=== PATIENT | female | born 1965 | race Caucasian/White ===

== ENCOUNTER 2020-05-19 09:35 | Outpatient (REF) | payer BC, SELFPAY ==
[2020-05-19 11:10] LABS: Alanine Aminotransferase 43 U/L (0-31); Albumin Level 4.4 g/dL (3.5-5.0); Alkaline Phosphatase 73 U/L (39-117); Aspartate Amino Transferase 26 U/L (5-31); Bilirubin Direct 0.2 mg/dL (0.0-0.5); Bilirubin Total 0.5 mg/dL (0.0-1.0); Cholesterol 247 mg/dL; HDL Cholesterol 53 mg/dL; LDL Cholesterol Calculated 174 mg/dl; Total Protein 6.9 g/dL (6.5-8.0); Triglycerides 104 mg/dL
== END 2020-05-19 09:36 | disposition home or self-care (01) ==
LOC: HO.LAB 09:35
PROVIDERS: Visit Provider Internal Medicine
DX: E78.00 Pure hypercholesterolemia, unspecified (principal); R74.01 Elevation of levels of liver transaminase levels
CPT/HCPCS: 80061; 80076

== ENCOUNTER 2020-06-04 08:37 | Emergency (ER) | payer BC, SELFPAY ==
[2020-06-04 08:50] VITALS: BP 153/89; PULSE 101; RESP 18; TEMP 37.1; O2SAT 97; BMI 34.6
--- NOTE | 2020-06-04 09:29 | ED.ABDPAIN ---
HPI - Abdominal Pain General Chief Complaint: Abdominal Pain Stated Complaint: vomiting,diarrhea,rectal bleeding Time Seen by Provider: 06/04/20 08:49 Source: patient Mode of arrival: ambulatory Limitations: no limitations History of Present Illness HPI narrative: Patient presents to the ED for lower abdominal pain, diarrhea, and bright red blood in stool. Patient states stool was watery. Patient states history of infection colitis as similar presentation in the past. Patient denies any hematuria, flank pain, fever, chills, nausea, vomiting. Patient denies any vomiting blood. Patient states no family history of colon cancer. Patient states colonoscopy she had last year was normal. Related Data Previous Rx's Medication Instructions Recorded ciprofloxacin HCl 500 mg PO Q12H #14 tab 06/04/20 metronidazole 500 mg PO Q12H #14 tab 06/04/20 oxycodone-acetaminophen [Percocet] 1 tab PO Q8H PRN #12 tab 06/04/20 Allergies Allergy/AdvReac Type Severity Reaction Status Date / Time No Known Allergies Allergy Verified 06/04/20 08:58 Review of Systems Review of Systems Yes all other systems are reviewed and are negative Constitutional: Reports as per HPI and Reports no additional constitutional complaints Eyes: Reports as per HPI and Reports no additional eye complaints Reports system reviewed and no additional complaints, except as documented and Reports as per HPI Cardiovascular: Reports as per HPI and Reports no additional cardiovascular complaints Respiratory: Reports as per HPI and Reports no additional respiratory complaints Gastrointestinal: Reports abdominal pain, Reports diarrhea and Reports loose stools Comments: rectal bleeding Genitourinary: Reports no additional female genitourinary complaints and Reports as per HPI Musculoskeletal: Reports no additional musculoskeletal complaints and Reports as per HPI Reports system reviewed and no additional complaints, except as documented and Reports as per HPI Psychiatric: Reports no additional psychiatric complaints and Reports as per HPI Physical Exam Vital Signs: Vital Signs: Last Vital Signs Temp 98.7 F 06/04/20 10:57 Pulse 78 06/04/20 10:57 Resp 16 06/04/20 10:57 BP 151/88 H 06/04/20 10:57 Pulse Ox 98 06/04/20 10:57 Body Mass Index 34.6 Const: General: cooperative, healthy appearing, comfortable, no acute distress and well developed Orientation/consciousness: patient oriented x3 HENMT: Head: Yes normal to inspection and Yes No palpable skull fracture present Eyes: General: appearance normal, both eyes and all related structures Neck: Neck: Yes normal visual inspection, Yes full ROM, Yes no lymphadenopathy, Yes no meningeal signs and Yes trachea midline Chest: Chest palpation & inspection: normal inspection of the chest, normal palpation of entire chest wall and no localized rib tenderness Resp: Effort & Inspection: normal respiratory effort, able to speak in complete sentences, normal respiratory pattern, no audible wheezes and no cough Auscultation: clear to auscultation bilaterally Cardio: Jugular venous distension: no JVD Heart sounds: S1 normal heart sound present and S2 normal heart sound present GI: Other: Positive for bright red blood on rectal exam. Negative for any hemorrhoids. Stool is brown. Inspection: Yes normal to inspection and No abdominal wall ecchymosis Palpation (GI): Soft to palpation, Tenderness to palpation present (GI) in the LLQ and in the RLQ, no guarding and not rigid : General: No CVA tenderness and Yes no CVA tenderness Back/Spine/Pelvis: Back: no CVA tenderness, No CVA tenderness and No back tenderness Skin: General skin exam: no rashes or lesions noted Neuro: General: patient oriented x3, gait normal, no meningeal signs and CN's II-XI intact bilaterally Cranial nerves: Yes CN's II-XII intact bilaterally Extrem: General: Yes normal to inspection and Yes full ROM Psych: Appearance: grossly normal, well kempt and not disheveled Course Course Course Narrative: History physical exam presents as possible colitis. Patient will have labs drawn, stool guaiac, pain meds, and IV fluids. Most likely patient will be sent for abdominal CT scan. Patient presently has stable vital signs. Reevaluation(s) Reevaluation #1: patient's elevated white blood cell count. Awaiting for abdominal CT scan results. also waiting for urinalysis results Time: 10:59 Reevaluation #2: Patient's CT scan shows colitis without any perforation or abscess. Patient is safe for discharge with oral antibiotics. plan discussed with patient and she is agreeable. Time: 11:55 MDM - Abdominal Pain MDM Narrative Medical decision making narrative: Colitis Lab Data Result diagrams: 06/04/20 09:33 06/04/20 09:33 Labs: Lab Results 06/04/20 06/04/20 06/04/20 Range/Units 09:33 09:33 09:33 WBC 13.1 H (4.8-10.8) X10*3/uL RBC 4.95 (4.20-5.50) X10*6/uL Hgb 14.7 (12.0-16.0) g/dl Hct 44.4 (37-47) % MCV 89.7 (80-98) fL MCH 29.7 (27.0-33.0) pg MCHC 33.1 (31.0-35.0) g/dl RDW 12.6 (11.0-16.0) % Plt Count 229 (160-400) X10*3/uL MPV 12.0 (9.4-12.3) fL Immature Gran % (Auto) 0.3 (0.0-0.4) % Neut % (Auto) 86.4 H (45-73) % Lymph % (Auto) 8.5 L (20-40) % [place] % (Auto) 4.1 (2-11) % Eos % (Auto) 0.5 (0-4) % Baso % (Auto) 0.2 (0-2) % Lymph # (Auto) 1.1 L (1.2-4.9) X10*3/uL [place] # (Auto) 0.5 (0.1-1.2) X10*3/uL Eos # (Auto) 0.1 (0.0-0.4) X10*3/uL Baso # (Auto) 0.0 (0.0-0.2) X10*3/uL Abs Immat Gran (auto) 0.04 H (0.00-0.03) X10*3/uL Absolute Neuts (auto) 11.3 H (2.0-8.3) X10*3/uL Absolute Nucleated RBC 0.000 (0.0-0.012) X10*3/uL Nucleated RBC % (auto) 0.0 (0.0-0.2) /100WBC PT 11.9 (10.8-13.0) SEC INR 1.0 (0.9-1.1) APTT 34.6 (24.1-38.0) SEC Sodium 138 (135-145) mmol/L Potassium 4.3 (3.3-5.1) mmol/l Chloride 101 (96-108) mmol/L Carbon Dioxide 27 (22-29) mmol/L Anion Gap 14 (12-20) BUN 13 (9-16) mg/dL Creatinine 0.84 (0.5-1.4) mg/dL Estim Creat Clear Calc 82.9 Estimated GFR > 60 Random Glucose 112 (60-115) mg/dL Calcium 9.4 (8.4-10.2) mg/dL Total Bilirubin 0.5 (0.0-1.0) mg/dL Direct Bilirubin 0.2 (0.0-0.5) mg/dL AST 28 (5-31) U/L ALT 44 H (0-31) U/L Alkaline Phosphatase 77 (39-117) U/L Total Protein 7.0 (6.5-8.0) g/dL Albumin 4.5 (3.5-5.0) g/dL Lipase 12 (8-78) U/L Urine Color Urine Appearance Urine pH (5.0-8.0) Ur Specific [place] (1.005-1.025) Urine Protein (NEG-TRACE) MG/DL Urine Glucose (UA) (NEG) MG/DL Urine Ketones (NEG) MG/DL Urine Blood (NEG) Urine Nitrite (NEG) Ur Leukocyte Esterase (NEG) Urine RBC (0) /HPF Urine WBC (0-4) /HPF Ur Squamous Epith Cells /LPF Urine Bacteria /LPF Urine Mucus /LPF Stool Occult Blood (NEG) 06/04/20 06/04/20 Range/Units 09:43 11:39 WBC (4.8-10.8) X10*3/uL RBC (4.20-5.50) X10*6/uL Hgb (12.0-16.0) g/dl Hct (37-47) % MCV (80-98) fL MCH (27.0-33.0) pg MCHC (31.0-35.0) g/dl RDW (11.0-16.0) % Plt Count (160-400) X10*3/uL MPV (9.4-12.3) fL Immature Gran % (Auto) (0.0-0.4) % Neut % (Auto) (45-73) % Lymph % (Auto) (20-40) % [place] % (Auto) (2-11) % Eos % (Auto) (0-4) % Baso % (Auto) (0-2) % Lymph # (Auto) (1.2-4.9) X10*3/uL [place] # (Auto) (0.1-1.2) X10*3/uL Eos # (Auto) (0.0-0.4) X10*3/uL Baso # (Auto) (0.0-0.2) X10*3/uL Abs Immat Gran (auto) (0.00-0.03) X10*3/uL Absolute Neuts (auto) (2.0-8.3) X10*3/uL Absolute Nucleated RBC (0.0-0.012) X10*3/uL Nucleated RBC % (auto) (0.0-0.2) /100WBC PT (10.8-13.0) SEC INR (0.9-1.1) APTT (24.1-38.0) SEC Sodium (135-145) mmol/L Potassium (3.3-5.1) mmol/l Chloride (96-108) mmol/L Carbon Dioxide (22-29) mmol/L Anion Gap (12-20) BUN (9-16) mg/dL Creatinine (0.5-1.4) mg/dL Estim Creat Clear Calc Estimated GFR Random Glucose (60-115) mg/dL Calcium (8.4-10.2) mg/dL Total Bilirubin (0.0-1.0) mg/dL Direct Bilirubin (0.0-0.5) mg/dL AST (5-31) U/L ALT (0-31) U/L Alkaline Phosphatase (39-117) U/L Total Protein (6.5-8.0) g/dL Albumin (3.5-5.0) g/dL Lipase (8-78) U/L Urine Color YELLOW Urine Appearance HAZY Urine pH 6.5 (5.0-8.0) Ur Specific [place] 1.010 (1.005-1.025) Urine Protein NEG (NEG-TRACE) MG/DL Urine Glucose (UA) NEG (NEG) MG/DL Urine Ketones NEG (NEG) MG/DL Urine Blood 1+ H (NEG) Urine Nitrite NEG (NEG) Ur Leukocyte Esterase NEG (NEG) Urine RBC 1-4 (0) /HPF Urine WBC 0-2 (0-4) /HPF Ur Squamous Epith Cells 1+ /LPF Urine Bacteria NONE /LPF Urine Mucus 1+ /LPF Stool Occult Blood POS (NEG) Discharge Plan Discharge Clinical Impression: Colitis Patient Disposition: Home, Self-Care Instructions: Colitis (ED) Additional Instructions: return to the ED immediately for worsening abdominal pain, nausea, vomiting, worsening rectal bleeding, fever, chills, or any other concerning symptoms. Prescriptions: New metronidazole 500 mg tablet 500 mg PO Q12H Qty: 14 RF: 0 ciprofloxacin HCl 500 mg tablet 500 mg PO Q12H Qty: 14 RF: 0 oxycodone-acetaminophen [Percocet] 5-325 mg tablet 1 tab PO Q8H PRN (Reason: pain) Qty: 12 RF: 0 Referrals: Rebecca Willis MD [Primary Care Provider] - 2 days ( Colitis) Stand Alone Forms: Work/School Release Interventions: ED Discharge Assessment Last Done: 06/04/20 12:17 Discharge Date/Time: 06/04/20 12:18 Print Language: [place] [facility] Past Medical History Medical History Fatty liver Hypertension Surgical History (Updated 06/04/20 @ 08:53 by Vaughn Ingram) H/O: hysterectomy Social History Social History Alcohol intake: never Smoked in Last 30 Days: No Use of substances other than those prescribed or required for medical reasons: No Advance Directives: No Advance Directives Information Provided: No
[2020-06-04] MEDS: 0.9 % Sodium Chloride 1,000 ML 999 ML IVCONT (09:34)
[2020-06-04 09:46] LABS: MANUAL DIFF FLAG NO
[2020-06-04 09:50] LABS: OBS Int Ctl Valid YES; OBS1 POS (NEG)
[2020-06-04 09:59] LABS: Prothrombin Time 11.9 SEC (10.8-13.0)
[2020-06-04 10:01] LABS: Partial Thromboplastin Time 34.6 SEC (24.1-38.0)
[2020-06-04 10:05] LABS: Basophils Percent Auto 0.2 % (0-2); Eosinophils Absolute Auto 0.1 X10*3/uL (0.0-0.4); Eosinophils Percent Auto 0.5 % (0-4); Hematocrit 44.4 % (37-47); Hemoglobin 14.7 g/dl (12.0-16.0); Imm Gran Abs Auto 0.04 X10*3/uL (0.00-0.03); Imm Gran Pct Auto 0.3 % (0.0-0.4); Lymphocytes Absolute Auto 1.1 X10*3/uL (1.2-4.9); Lymphocytes Percent Auto 8.5 % (20-40); Mean Corpuscular HGB Conc 33.1 g/dl (31.0-35.0); Mean Corpuscular Hemoglobin 29.7 pg (27.0-33.0); Mean Corpuscular Volume 89.7 fL (80-98); Monocytes Absolute Auto 0.5 X10*3/uL (0.1-1.2); Monocytes Percent Auto 4.1 % (2-11); Neutrophils Absolute Auto 11.3 X10*3/uL (2.0-8.3); Neutrophils Percent Auto 86.4 % (45-73); Platelet Count 229 X10*3/uL (160-400); Red Blood Count 4.95 X10*6/uL (4.20-5.50); Red Cell Distribution Width 12.6 % (11.0-16.0); White Blood Count 13.1 X10*3/uL (4.8-10.8)
[2020-06-04 10:15] LABS: Alanine Aminotransferase 44 U/L (0-31); Albumin Level 4.5 g/dL (3.5-5.0); Alkaline Phosphatase 77 U/L (39-117); Aspartate Amino Transferase 28 U/L (5-31); Bilirubin Direct 0.2 mg/dL (0.0-0.5); Bilirubin Total 0.5 mg/dL (0.0-1.0); Lipase 12 U/L (8-78)
[2020-06-04 10:42] LABS: Anion Gap 14 (12-20); Blood Urea Nitrogen 13 mg/dL (9-16); Calcium 9.4 mg/dL (8.4-10.2); Carbon Dioxide 27 mmol/L (22-29); Chloride 101 mmol/L (96-108); Creatinine Clr Calc Pharmacy 82.9; Estimated Glomerular Filt Rate > 60; Glucose Random 112 mg/dL (60-115); Potassium 4.3 mmol/l (3.3-5.1); Sodium 138 mmol/L (135-145)
--- NOTE | 2020-06-04 10:43 | CT_ITS ---
EXAMINATION: CT ABDOMEN AND PELVIS WITH CONTRAST CLINICAL INFORMATION: Abdominal pain. Rectal bleeding. COMPARISON: Abdominal ultrasound 02/13/2020 TECHNIQUE: Multidetector volumetric images were obtained from the superior aspect of the liver through the pubic symphysis following administration 85 mL of Omnipaque 350 intravenous contrast. Sagittal and coronal reformatted images were obtained on the technologist's workstation. Oral contrast: No This CT examination was performed using dose optimization techniques as appropriate, variously including the following: *Automated exposure control *Adjustment of mA and/or kV according to patient size (this includes techniques or standardized protocols for targeted exams where dose is matched to indication/reason for exam; i.e. extremities or head) *Use of iterative reconstruction technique DLP: 783 mGy-cm FINDINGS: LUNG BASES: The visualized lung bases are unremarkable. LIVER, GALLBLADDER, AND BILIARY TREE: The liver is normal in size and shape with relatively low attenuation. No focal hepatic lesion or biliary ductal dilatation is present. The gallbladder is unremarkable with no evidence of radiopaque gallstones, gallbladder wall thickening, or obvious pericholecystic inflammatory changes. PANCREAS: Unremarkable. SPLEEN: Unremarkable. ADRENAL GLANDS: Unremarkable. KIDNEYS AND URETERS: The kidneys are normal in size, shape, and attenuation. No hydronephrosis, hydroureter, or calculi seen. No perinephric stranding. BLADDER: Unremarkable. GASTROINTESTINAL TRACT: The stomach is unremarkable. Normal caliber small bowel. There is no obstruction. Normal appendix. There is wall thickening of the colon extending from the transverse colon through the rectum. Adjacent inflammation of the fat. No free air. No free fluid. Scattered colonic diverticulosis without diverticulitis. ABDOMINAL WALL: No significant hernia is appreciated. LYMPH NODES: Normal. VASCULAR: Normal caliber aorta with minimal atherosclerotic calcifications. PELVIC VISCERA: Uterus is not seen. No adnexal mass. OSSEOUS STRUCTURES: No acute or suspicious osseous abnormality. Degenerative changes of the spine. CT/CT abdomen pelvis w con IMPRESSION: Colitis involving the left hemicolon. This is of uncertain etiology, favoring infectious or inflammatory. Likely hepatic steatosis.
[2020-06-04 10:57] VITALS: BP 151/88; PULSE 78; RESP 16; TEMP 37.1; O2SAT 98
--- NOTE | 2020-06-04 10:59 | PC.NURSE ---
pt declines zofran/morphine at this time. off to ct. aware and agreeable to plan of care.
[2020-06-04] MEDS: iohexoL 350 MG/ML 100 ML INFUS..BTL 85 ML IV (11:21)
[2020-06-04 11:47] LABS: Glucose Urine UA NEG (NEG); Leukocyte Esterase Urine NEG (NEG); Nitrite Urine NEG (NEG); PH 6.5 (5.0-8.0); Urine Blood 1+ (NEG); Urine Ketones NEG (NEG); Urine Protein NEG (NEG-TRACE)
[2020-06-04 11:49] LABS: Appearance Urine HAZY; Color Urine YELLOW
[2020-06-04 11:53] LABS: Mucus Urine 1+ /LPF; Squamous Epithelial Cell Urine 1+ /LPF; WBC Urine 0-2 /HPF (0-4)
== END 2020-06-04 12:18 | disposition home or self-care (01) ==
PROVIDERS: Physician Assistant; Emergency Provider Emergency Medicine; PCP Internal Medicine
DX: K52.89 Other specified noninfective gastroenteritis and colitis (principal); R10.9 Unspecified abdominal pain; Z79.899 Other long term (current) drug therapy
CPT/HCPCS: 36415; 74177; 80053; 80076; 81001; 82248; 82272; 83690; 85025; 85610; 85730; 96361; 96374; 96375; 99284; Q9967

== ENCOUNTER 2021-01-17 08:33 | Outpatient (REF) | payer BC, SELFPAY ==
[2021-01-17 09:53] LABS: Alanine Aminotransferase 31 U/L (0-31); Albumin Level 4.5 g/dL (3.5-5.0); Alkaline Phosphatase 72 U/L (39-117); Anion Gap 10 (12-20); Aspartate Amino Transferase 21 U/L (5-31); Bilirubin Total 0.4 mg/dL (0.0-1.0); Blood Urea Nitrogen 17 mg/dL (9-16); Carbon Dioxide 33 mmol/L (22-29); Chloride 102 mmol/L (96-108); Cholesterol 247 mg/dL; Estimated Glomerular Filt Rate > 60; Glucose Fasting 92 mg/dL (60-99); HDL Cholesterol 52 mg/dL; LDL Cholesterol Calculated 168 mg/dl; Potassium 4.4 mmol/L (3.3-5.1); Sodium 141 mmol/L (135-145); Total Protein 7.2 g/dL (6.5-8.0); Triglycerides 139 mg/dL
== END 2021-01-17 08:34 | disposition home or self-care (01) ==
LOC: HO.LAB 08:33
PROVIDERS: PCP Internal Medicine; Visit Provider Internal Medicine
DX: I10 Essential (primary) hypertension (principal); E78.5 Hyperlipidemia, unspecified
CPT/HCPCS: 36415; 80053; 80061

== ENCOUNTER 2022-02-01 10:17 | Outpatient (REF) | payer OTHER, SELFPAY ==
[2022-02-01 11:19] LABS: Alanine Aminotransferase 13 U/L (0-31); Albumin Level 4.7 g/dL (3.5-5.0); Alkaline Phosphatase 75 U/L (39-117); Aspartate Amino Transferase 16 U/L (5-31); Bilirubin Direct 0.2 mg/dL (0.0-0.5); Bilirubin Total 0.5 mg/dL (0.0-1.0); Total Protein 7.4 g/dL (6.5-8.0)
== END 2022-02-01 10:18 | disposition home or self-care (01) ==
LOC: HO.LAB 10:17
PROVIDERS: PCP Internal Medicine; Visit Provider Internal Medicine
DX: K76.0 Fatty (change of) liver, not elsewhere classified (principal)
CPT/HCPCS: 36415; 80076

== ENCOUNTER 2022-04-19 08:42 | Outpatient (REF) | payer OTHER, SELFPAY ==
[2022-04-19 09:56] LABS: Alanine Aminotransferase 14 U/L (0-31); Albumin Level 4.5 g/dL (3.5-5.0); Alkaline Phosphatase 71 U/L (39-117); Anion Gap 12 (12-20); Aspartate Amino Transferase 17 U/L (5-31); Bilirubin Total 0.4 mg/dL (0.0-1.0); Blood Urea Nitrogen 17 mg/dL (9-16); Calcium 9.9 mg/dL (8.4-10.2); Carbon Dioxide 31 mmol/L (22-29); Chloride 103 mmol/L (96-108); Cholesterol 301 mg/dL; Estimated Glomerular Filt Rate > 60; Glucose Fasting 88 mg/dL (60-99); HDL Cholesterol 58 mg/dL; LDL Cholesterol Calculated 229 mg/dl; Potassium 4.6 mmol/L (3.3-5.1); Sodium 141 mmol/L (135-145); Total Protein 6.9 g/dL (6.5-8.0); Triglycerides 73 mg/dL
== END 2022-04-19 08:43 | disposition home or self-care (01) ==
LOC: HO.LAB 08:42
PROVIDERS: PCP Internal Medicine; Visit Provider Internal Medicine
DX: Z00.00 Encounter for general adult medical examination without abnormal findings (principal); E78.5 Hyperlipidemia, unspecified
CPT/HCPCS: 36415; 80053; 80061

== ENCOUNTER 2022-09-03 13:32 | Outpatient (REF) | payer OTHER, SELFPAY ==
--- NOTE | ~2022-09-03 | XR_ITS ---
EXAMINATION: XR humerus LT, XR shoulder LT min 2V CLINICAL INFORMATION: Reason for Exam M79.602 - Pain in left arm COMPARISON: None TECHNIQUE: Four views of the shoulder. 2 views of the humerus FINDINGS: No acute fracture or dislocation. Mild degenerative changes of the acromioclavicular and glenohumeral joints with degenerative spurring. A 2 cm calcification overlying the glenohumeral joint which may reflect a loose body. Soft tissues are unremarkable. XR/XR shoulder LT min 2V IMPRESSION: * Mild degenerative changes of the shoulder. A 2 cm calcification overlying the glenohumeral joint which may reflect a loose body.
--- NOTE | ~2022-09-03 | XR_ITS ---
EXAMINATION: XR humerus RT, XR shoulder RT min 2V CLINICAL INFORMATION: Reason for Exam M79.601 - Pain in right arm COMPARISON: None TECHNIQUE: Four views of the shoulder. 2 views of the humerus FINDINGS: No acute fracture or dislocation. Moderate degenerative changes of the shoulder with loss of the acromioclavicular joint space. Soft tissues are unremarkable. XR/XR shoulder RT min 2V IMPRESSION: * Moderate degenerative changes of the shoulder.
--- NOTE | ~2022-09-03 | US_ITS ---
EXAMINATION: US VENOUS WITH DOPPLER UPPER EXTREMITY, BILATERAL CLINICAL INFORMATION: Pain COMPARISON: None TECHNIQUE: Ultrasound of the upper extremity is performed using compression sonography and color and pulse Doppler flow with assessment of augmentation of flow. There is also imaging and Doppler assessment of the jugular and subclavian veins. Spectral analysis with color-flow imaging is performed. FINDINGS: The internal jugular, subclavian, axillary, brachial, basilic and cephalic veins are patent bilaterally. Radial and ulnar veins in the forearm are patent bilaterally. US/US venous duplex UE BI IMPRESSION: No DVT demonstrated in the bilateral upper extremity.
--- NOTE | ~2022-09-03 | XR_ITS ---
EXAMINATION: XR humerus RT, XR shoulder RT min 2V CLINICAL INFORMATION: Reason for Exam M79.601 - Pain in right arm COMPARISON: None TECHNIQUE: Four views of the shoulder. 2 views of the humerus FINDINGS: No acute fracture or dislocation. Moderate degenerative changes of the shoulder with loss of the acromioclavicular joint space. Soft tissues are unremarkable. XR/XR humerus RT IMPRESSION: * Moderate degenerative changes of the shoulder.
--- NOTE | ~2022-09-03 | XR_ITS ---
EXAMINATION: XR humerus LT, XR shoulder LT min 2V CLINICAL INFORMATION: Reason for Exam M79.602 - Pain in left arm COMPARISON: None TECHNIQUE: Four views of the shoulder. 2 views of the humerus FINDINGS: No acute fracture or dislocation. Mild degenerative changes of the acromioclavicular and glenohumeral joints with degenerative spurring. A 2 cm calcification overlying the glenohumeral joint which may reflect a loose body. Soft tissues are unremarkable. XR/XR humerus LT IMPRESSION: * Mild degenerative changes of the shoulder. A 2 cm calcification overlying the glenohumeral joint which may reflect a loose body.
== END 2022-09-03 13:33 | disposition home or self-care (01) ==
LOC: HO.XRAY 13:32
PROVIDERS: PCP Internal Medicine; Visit Provider Internal Medicine
DX: M25.511 Pain in right shoulder (principal); M25.512 Pain in left shoulder; M79.601 Pain in right arm; M79.602 Pain in left arm; M79.89 Other specified soft tissue disorders
CPT/HCPCS: 73030; 73060; 93970

== ENCOUNTER 2022-09-06 08:05 | Outpatient (REF) | payer OTHER, SELFPAY ==
[2022-09-06 09:20] LABS: Alanine Aminotransferase 12 U/L (0-31); Albumin Level 4.6 g/dL (3.5-5.0); Alkaline Phosphatase 65 U/L (39-117); Anion Gap 14 (12-20); Aspartate Amino Transferase 16 U/L (5-31); Bilirubin Total 0.6 mg/dL (0.0-1.0); Blood Urea Nitrogen 18 mg/dL (9-16); Carbon Dioxide 30 mmol/L (22-29); Chloride 104 mmol/L (96-108); Cholesterol 281 mg/dL; Estimated Glomerular Filt Rate > 60; Glucose Fasting 85 mg/dL (60-99); HDL Cholesterol 56 mg/dL; LDL Cholesterol Calculated 209 mg/dl; Potassium 4.5 mmol/L (3.3-5.1); Sodium 143 mmol/L (135-145); Total Protein 7.1 g/dL (6.5-8.0); Triglycerides 83 mg/dL
== END 2022-09-06 08:06 | disposition home or self-care (01) ==
LOC: HO.LAB 08:05
PROVIDERS: PCP Internal Medicine; Visit Provider Internal Medicine
DX: E78.5 Hyperlipidemia, unspecified (principal); I10 Essential (primary) hypertension
CPT/HCPCS: 36415; 80053; 80061

== ENCOUNTER 2022-11-24 07:58 | Outpatient (REF) | payer OTHER, SELFPAY ==
--- NOTE | ~2022-11-24 | US_ITS ---
EXAMINATION: US ABDOMEN LIMITED CLINICAL INFORMATION: Ventral hernia without obstruction or gangrene. COMPARISON: CT abdomen and pelvis 06/04/2020. TECHNIQUE: Real-time imaging of the umbilical region in the area of concern with and without Valsalva maneuver. FINDINGS: No periumbilical hernia is appreciated by ultrasound. No soft tissue mass or fluid collection is seen. US/US abdomen limited IMPRESSION: No hernia appreciated by ultrasound
== END 2022-11-24 07:59 | disposition home or self-care (01) ==
LOC: HO.US 07:58
PROVIDERS: PCP Internal Medicine; Visit Provider Internal Medicine
DX: K43.9 Ventral hernia without obstruction or gangrene (principal)
CPT/HCPCS: 76705

== ENCOUNTER 2023-01-17 07:32 | Outpatient (REF) | payer OTHER, SELFPAY | END 2023-01-17 07:33 | disposition home or self-care (01) | LOC: HO.LAB 07:32 | PROVIDERS: PCP Internal Medicine; Visit Provider Internal Medicine | DX: E55.9 Vitamin D deficiency, unspecified (principal); I10 Essential (primary) hypertension; E78.5 Hyperlipidemia, unspecified | CPT/HCPCS: 36415; 80053; 80061; 82306 ==

== ENCOUNTER 2023-02-14 07:32 | Outpatient (REF) | payer OTHER, SELFPAY ==
[2023-02-14 08:30] LABS: Albumin Level 4.3 g/dL (3.5-5.0)
[2023-02-16 13:22] LABS: Calcium (PTHI) 9.9 mg/dL (8.6-10.4); PTHI 27 pg/mL (16-77)
[2023-02-16 18:17] LABS: Calcium, Random Urine 7.1 mg/dL
[2023-02-17 01:33] LABS: Calcium, Ionized 5.2 mg/dL (4.7-5.5)
== END 2023-02-14 07:33 | disposition home or self-care (01) ==
LOC: HO.LAB 07:32
PROVIDERS: PCP Internal Medicine; Visit Provider Internal Medicine
DX: E83.52 Hypercalcemia (principal)
CPT/HCPCS: 36415; 82040; 82310; 82330; 83970

== ENCOUNTER 2023-02-18 15:54 | Outpatient (AMB) | payer OTHER, SELFPAY ==
--- NOTE | 2023-02-18 16:00 | MHC.PC.OV ---
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 Financial Services Required: No Accompanied by: Self / Same As Patient Allergies No Known Allergies Allergy (Verified 02/18/23 16:08) Medication List - Last Reconciled 02/18/23 by Rebecca Koenig MD buspirone 10 mg PO BID 90 days cetirizine (Zyrtec) 10 mg PO DAILY fluticasone propionate 50 mcg/actuation (Flonase Allergy Relief) 1 spray intranasal DAILY 90 days ibuprofen 800 mg PO Q8H PRN 90 days lisinopril-hydrochlorothiazide 10-12.5 mg 1 tab PO DAILY 90 days loratadine (Claritin) 10 mg PO DAILY lorazepam 0.5 mg PO BID PRN 10 days omeprazole 20 mg PO DAILY 90 days Tobacco use date assessed: 02/18/23 Dental Screening Dental Screen Date: 02/18/23 Did you have a dental visit in the last 12 months?: Yes Did you have a dental problem in the last 6 months where you did not have access to dental care?: No Was dental information given to patient?: Patient has dentist HPI HPI Comments History of Present Illness Details This is a 57-year-old female that comes for her physical exam today. She has pure hypercholesterolemia but her [place] risk score is 5.1% risk of having a heart attack or stroke in the next 10 years. Last colonoscopy was 2019. Last mammogram was 2020 and she will call for an appointment. No need for Pap smear due to hysterectomy. She has been losing weight and has inking all candidiasis frequently due to skin flapping in the area. She will eventually benefit from panniculectomy. [facility] Medical History Dyslipidemia Fatty liver GERD (gastroesophageal reflux disease) Hypertension Surgical History (Updated 02/18/23 @ 16:15 by Rebecca Koenig MD) H/O: hysterectomy History of section History of colonoscopy History of laparoscopy Family History Father Esophageal cancer Mother COPD (chronic obstructive pulmonary disease) Paternal Grandfather Diabetes Maternal Grandfather Substance abuse Maternal Grandmother Substance abuse Brother Substance abuse Other Mental problem Social History Housing: House Alcohol intake: never Patient Tobacco Use Status: Former Tobacco user e-Cigarette/Vaping Use: Never Used Second Hand Smoke Exposure: No service: No Current occupational status: employed 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 1. Little interest or pleasure in doing things: not at all 2. Feeling down, depressed, or hopeless: not at all 3. Trouble falling or staying asleep, or sleeping too much: not at all 4. Feeling tired or having little energy: not at all 5. Poor appetite or overeating: not at all 6. Feeling bad about yourself - or that you are a failure or have let yourself or your family down: not at all 7. Trouble concentrating on things, such as reading the newspaper or watching television: not at all 8. Moving or speaking so slowly that other people could have noticed. Or the opposite - being so fidgety or restless that you have been moving around a lot more than usual: not at all 9. Thoughts that you would be better off or of hurting yourself in some way: not at all Total score: 0 Depression Screening Interpretation: Negative 47882 - PHQ-9 Billing: Yes Source: Developed by Drs. Naveen Beasley, Priscila Bagley, Antonio Lind and colleagues, with an educational keegan from [employer]. Thrive Questionnaire Date Thrive assessed: 09/03/22 AUDIT C Alcohol Use Questionnaire (AUDIT-C) 1. How often do you have a drink containing alcohol?: Never Total Score: 0 TORIBIO-7 AMB Questionnaire TORIBIO-7 Date TORIBIO - 7 assessed: 02/18/23 Feeling nervous, anxious, or on edge: 1 = Several days Not being able to stop or control worryin = Not at all Worrying too much about different things: 0 = Not at all Trouble relaxin = Not at all Being so restless that it is hard to sit still: 0 = Not at all Becoming easily annoyed or irritable: 0 = Not at all Feeling afraid as if something awful might happen: 0 = Not at all Total TORIBIO-7 score (0-4 normal; 5-9 mild; 10-14 moderate; 15-21 severe): 1 Source: Developed by Drs. Naveen Beasley, Priscila Bagley, Antonio Lind and colleagues, with an educational keegan from [employer]. TORIBIO-7 Assessment Billing TORIBIO-7 Assessment Tool: TORIBIO-7 Assessment 45389 Review of Systems Const All systems reviewed & are unremarkable except as noted in HPI and below Eyes Reports no additional complaints, Denies change in vision and Denies other visual disturbances Card Denies chest pain at rest, Denies chest pain with activity, Denies edema, Denies irregular heart rhythm, Denies claudication, Denies dyspnea, Denies dyspnea on exertion, Denies orthopnea, Denies paroxysmal nocturnal dyspnea and Denies slow heart rate Resp Denies cough, Denies dyspnea and Denies dyspnea on exertion GI Denies abdominal pain, Denies change in bowel habits, Denies excessive flatus, Denies nausea and Denies vomiting Denies urinary incontinence, Denies urinary hesitancy and Denies urinary urgency Musc Denies abnormal gait, Denies atrophy, Denies deformity and Denies limited range of motion Skin/Breast Denies bleeding lesions, Denies changing lesions and Denies rash Neuro Denies abnormal gait, Denies behavioral changes, Denies confusion and Denies lack of coordination Psych Denies behavioral changes and Denies confusion Physical exam (Primary Care) Vital Signs: Last Vital Signs Pulse 80 02/18/23 16:01 BP 136/90 H 02/18/23 16:01 Pulse Ox 97 02/18/23 16:01 Oxygen Delivery Method Room Air 02/18/23 16:01 BMI result Body Mass Index 30.0 Tobacco/Smoking Status: Tobacco use Status Tobacco use date assessed 02/18/23 02/18/23 16:06 Patient Tobacco Use Status Former Tobacco user 02/18/23 16:00 e-Cigarette/Vaping Use Never Used 02/18/23 16:00 PHQ-9: PHQ-9 Score PHQ-9: Total score 0 02/18/23 16:13 Depression Screening Interpretation: Negative Thrive Assessment: Date of Thrive Assessment Date Thrive assessed 09/03/22 02/18/23 16:00 Const General: No confusion Orientation/consciousness: patient oriented x3 and No confusion HENMT Head: Yes normal to inspection, Yes normocephalic and Yes atraumatic Ears: external ears normal Eyes General: appearance normal, both eyes and all related structures Eyelids: Yes eyelids normal Conjunctivae: conjunctivae normal Neck Neck: Yes normal visual inspection and Yes supple Resp Effort & Inspection: normal respiratory effort Auscultation: clear to auscultation bilaterally Cardio Jugular venous distension: no JVD Rate: regular rate Rhythm: regular rhythm Heart sounds: S1 normal heart sound present and S2 normal heart sound present GI Inspection: Yes normal to inspection Palpation (GI): Soft to palpation and nontender Auscultation: normal bowel sounds Skin General skin exam: no rashes or lesions noted Neuro General: patient oriented x3, no focal motor deficits and No confusion Extrem General: Yes full ROM Psych Appearance: grossly normal Assessment and Plan Assessment & Plan (1) Physical exam: Code(s): Z00.00 - Encounter for general adult medical examination without abnormal findings Plan: Repeat in a year Medications: New alprazolam 0.5 mg PO BID PRN 20 tabs 0RF anxiety 10 days Discontinued lorazepam Take 1 to 2 tabs 30 minutes prior to boarding the plane. Discontinued Reason: Patient Completed Course 0.5 mg PO BID 10 days PRN 20 tabs 0RF anxiety Coding Level of Care Code Est Pt Prev Care 40-64y(44748) Diagnoses Physical exam Z00.00 Additional Codes TORIBIO-7 Assessment Billing - TORIBIO-7 Assessment Tool: TORIBIO-7 Assessment 96829 ([id number]) Time Spent (min) 35
[2023-02-18 16:01] VITALS: BP 136/90; PULSE 80; O2SAT 97
== END 2023-02-18 16:34 | disposition home or self-care (01) ==
PROVIDERS: PCP Internal Medicine; Visit Provider Internal Medicine
DX: Z00.00 Encounter for general adult medical examination without abnormal findings (principal)
CPT/HCPCS: 99396

== ENCOUNTER 2023-06-06 12:03 | Outpatient (AMB) | payer OTHER, SELFPAY ==
--- NOTE | 2023-06-06 13:05 | MHC.OFFWIV ---
Intake Vital Signs 06/06/23 13:15 BP 128/68 Blood Pressure Location Rt brachial Position Sitting Pulse 58 Pulse Source Pulse Oximeter Temp 98.2 F Temp Source Oral Pulse Oximetry (%) 98 Oxygen Delivery Method Room Air Intake Visit Reasons: EST/sinus infection/[phone] Intake Note: Pt c/o of sinus infection x 1 week. Started with scratchy throat and yellow/green sludge down throat. Patient Tobacco Use Status: Former Tobacco user Allergies No Known Allergies Allergy (Verified 06/06/23 13:15) HPI EST/sinus infection/[phone] HPI Details Patient is a 57-year-old female who comes to the walk-in clinic complaining of headache, nasal congestion, and cough for about a week. Home COVID test was negative. She denies fever chills, nausea vomiting or diarrhea, malaise or myalgias, headache or dizziness, weakness, chest pain or shortness of breath, chest congestion or other significant associated symptoms. [facility] Medical History GERD (gastroesophageal reflux disease) Dyslipidemia Fatty liver Hypertension Surgical History History of colonoscopy History of laparoscopy History of section H/O: hysterectomy Family History Father Esophageal cancer Mother COPD (chronic obstructive pulmonary disease) Paternal Grandfather Diabetes Maternal Grandfather Substance abuse Maternal Grandmother Substance abuse Brother Substance abuse Other Mental problem Social History Housing: House Alcohol intake: never Patient Tobacco Use Status: Former Tobacco user e-Cigarette/Vaping Use: Never Used Second Hand Smoke Exposure: No service: No Current occupational status: employed 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 Current occupational exposures/hazards: No Cognitive needs: No Hearing needs: No Vision needs: Yes (Glasses) Review of Systems Const All systems reviewed & are unremarkable except as noted in HPI and below Physical Exam Vital Signs: Last Vital Signs Temp 98.2 F 06/06/23 13:15 Pulse 58 06/06/23 13:15 BP 128/68 06/06/23 13:15 Pulse Ox 98 06/06/23 13:15 Oxygen Delivery Method Room Air 11/18/23 13:15 Const General: cooperative, healthy appearing, comfortable, no acute distress, alert, awake, Physically active and well groomed; No anxious, diaphoretic, intoxicated appearing, poor hygiene or tired appearing Nutritional Appearance: average body habitus Limitations: no limitations HEENT Head: Yes normal to inspection, Yes normocephalic and Yes atraumatic Ears: hearing grossly normal bilaterally, external ears normal, TM's normal bilaterally and EAC's normal General nose exam: Normal external nose present, Normal nares present, No nasal polyps present, Abnormal mucous membranes and turbinates present and Nasal discharge present Face and sinus: Yes normal facial exam, Yes face symmetric and Yes sinus tenderness Mouth: Normal oral and palatal mucosa present, lip normal and tongue normal Throat: Yes posterior oropharynx normal, Yes abnormal tonsil (mildly erythematous bilaterally), No peritonsillar mass, No postnasal drainage, No uvular edema and No cobblestoning Eyes General: appearance normal, both eyes and all related structures Resp Effort & Inspection: normal respiratory effort, able to speak in complete sentences, no audible wheezes, no cough, no grunting, not labored, no nasal flaring, no retractions and symmetric chest movement Auscultation: clear to auscultation bilaterally, no crackles, no rales, no rhonchi, no wheezes, lung sounds not diminished and No rub present Cardio Rate: regular rate Skin Other: Good color, warm and dry Psych Appearance: grossly normal Mental Status: mental status grossly normal Speech and movement: Normal speech and movement present Affect: normal affect Attitude: cooperative Thought process: Normal thought process present Insight: Good insight present (Psych) Judgement: Good judgement present (Psych) Assessment & Plan Assessment & Plan (1) Sinusitis: Code(s): J32.9 - Chronic sinusitis, unspecified Qualifiers: Sinusitis location: frontal Chronicity: acute Recurrence: non-recurrent Qualified Code(s): J01.10 - Acute frontal sinusitis, unspecified Plan Patient is a 57-year-old female comes to the walk-in clinic complaining of sinus pressure along with nasal congestion and productive cough for about a week. I think she has viral upper respiratory infection, possible early sinusitis. Declines viral panel testing for flu, COVID and RSV today. She was negative for COVID when checked at home. Will write her for azithromycin, and she can take benzonatate for the cough as well as Mucinex with adequate water intake. Other supportive care discussed. She knows to follow up if symptoms persist or worsen. Medications: New azithromycin take 500 mg today (day 1), then 250 mg for 4 days (days 2-5) PO 6 tabs 0RF benzonatate 100 mg PO BID-TID PRN 30 caps 0RF cough Coding Level of Care Code Est Pt Level 4 (93170) Diagnoses Acute non-recurrent frontal sinusitis J01.10 Sinusitis location: frontal Chronicity: acute Recurrence: non-recurrent
[2023-06-06 13:15] VITALS: BP 128/68; PULSE 58; TEMP 36.8; O2SAT 98
== END 2023-06-06 14:24 | disposition home or self-care (01) ==
PROVIDERS: PCP Internal Medicine; Visit Provider Physician Assistant Medical
DX: J01.10 Acute frontal sinusitis, unspecified (principal)
CPT/HCPCS: 99214

== ENCOUNTER 2023-10-31 09:16 | Outpatient (AMB) | payer OTHER, SELFPAY ==
[2023-10-31 09:22] VITALS: BP 104/70; PULSE 83; TEMP 37; O2SAT 97; BMI 30.2
--- NOTE | 2023-10-31 09:22 | MHC.OFFWIV ---
Intake Vital Signs 10/31/23 09:22 Height 5 ft 4 in Weight 176 lb BMI 30.2 BP 104/70 Blood Pressure Location Lt brachial Position Sitting Pulse 83 Pulse Source Pulse Oximeter Temp 98.6 F Temp Source Oral Pulse Oximetry (%) 97 Oxygen Delivery Method Room Air Intake Visit Reasons: EP sinus infection (lobby) Intake Note: Pt is here today c/o coughing up yellowish phelgm x3wks Patient Tobacco Use Status: Former Tobacco user Allergies No Known Allergies Allergy (Verified 10/31/23 09:25) PFSH Medical History GERD (gastroesophageal reflux disease) Dyslipidemia Fatty liver Hypertension Surgical History History of colonoscopy History of laparoscopy History of section H/O: hysterectomy Family History Father Esophageal cancer Mother COPD (chronic obstructive pulmonary disease) Paternal Grandfather Diabetes Maternal Grandfather Substance abuse Maternal Grandmother Substance abuse Brother Substance abuse Other Mental problem Social History Housing: House Alcohol intake: never Patient Tobacco Use Status: Former Tobacco user e-Cigarette/Vaping Use: Never Used Second Hand Smoke Exposure: No service: No Current occupational status: employed 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
--- NOTE | 2023-10-31 09:40 | AM.OFFWIN_ITS ---
Intake Vital Signs 10/31/23 09:22 Height 5 ft 4 in Weight 176 lb BMI 30.2 BP 104/70 Blood Pressure Location Lt brachial Position Sitting Pulse 83 Pulse Source Pulse Oximeter Temp 98.6 F Temp Source Oral Pulse Oximetry (%) 97 Oxygen Delivery Method Room Air Intake Visit Reasons: EP sinus infection (lobby) Patient Tobacco Use Status: Former Tobacco user Allergies No Known Allergies Allergy (Verified 10/31/23 09:25) HPI EP sinus infection (lobby) HPI Details Patient is a 58-year-old female comes to the walk-in clinic complaining of 3 months of nasal congestion, chest congestion, associated with productive phlegm which is reportedly green and sometimes bloody. She reports an insidious onset of symptoms, with no clear day of having the symptoms start, and no fever or chills, nausea vomiting malaise or myalgias, weakness or dizziness, shortness of breath or chest pain, or other significant associated symptoms. She does history of allergies, and takes Flonase and Zyrtec for this already regularly. [facility] Medical History GERD (gastroesophageal reflux disease) Dyslipidemia Fatty liver Hypertension Surgical History History of colonoscopy History of laparoscopy History of section H/O: hysterectomy Family History Father Esophageal cancer Mother COPD (chronic obstructive pulmonary disease) Paternal Grandfather Diabetes Maternal Grandfather Substance abuse Maternal Grandmother Substance abuse Brother Substance abuse Other Mental problem Social History Housing: House Alcohol intake: never Patient Tobacco Use Status: Former Tobacco user e-Cigarette/Vaping Use: Never Used Second Hand Smoke Exposure: No service: No Current occupational status: employed 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 Current occupational exposures/hazards: No Cognitive needs: No Hearing needs: No Vision needs: Yes (Glasses) Review of Systems Const All systems reviewed & are unremarkable except as noted in HPI and below Physical Exam Vital Signs: Last Vital Signs Temp 98.6 F 10/31/23 09:22 Pulse 83 10/31/23 09:22 BP 104/70 10/31/23 09:22 Pulse Ox 97 10/31/23 09:22 Oxygen Delivery Method Room Air 10/31/23 09:22 BMI result Body Mass Index 30.2 Const General: cooperative, healthy appearing, comfortable, no acute distress, alert, awake, Physically active and well groomed; No anxious, diaphoretic, ill appearing, intoxicated appearing, poor hygiene or tired appearing Nutritional Appearance: average body habitus Orientation/consciousness: oriented to person Limitations: no limitations HEENT Head: Yes normal to inspection, Yes normocephalic and Yes atraumatic Ears: hearing grossly normal bilaterally, external ears normal, EAC's normal and TM abnormal (Left side) dull and with fluid behind the TM General nose exam: Normal external nose present and Abnormal mucous membranes and turbinates present Face and sinus: Yes face symmetric and Yes sinus tenderness Mouth: Normal oral and palatal mucosa present, lip normal and tongue normal Throat: No peritonsillar mass, No postnasal drainage, No uvular edema, No cobblestoning and Yes other (Status post tarsal procedure, asymmetry of the posterior OP, but it rises ) Eyes General: appearance normal, both eyes and all related structures Neck Neck: Yes normal visual inspection, Yes full ROM, Yes no lymphadenopathy, Yes trachea midline, Yes supple and No anterior neck swelling Chest Chest palpation & inspection: normal palpation of entire chest wall Resp Effort & Inspection: normal respiratory effort, able to speak in complete sentences, no audible wheezes, no grunting, not labored, no nasal flaring, no retractions and symmetric chest movement Auscultation: clear to auscultation bilaterally, no crackles, no rales, no rhonchi, no wheezes, lung sounds not diminished and No rub present Cardio Palpation: normal PMI Rate: regular rate Rhythm: regular rhythm Heart sounds: S1 normal heart sound present and S2 normal heart sound present Skin Other: Good color, warm and dry Neuro General: oriented to person Psych Appearance: grossly normal Mental Status: mental status grossly normal Speech and movement: Normal speech and movement present Affect: normal affect Attitude: cooperative Thought process: Normal thought process present Insight: Good insight present (Psych) Judgement: Good judgement present (Psych) Assessment & Plan Assessment & Plan (1) Sinusitis: Code(s): J32.9 - Chronic sinusitis, unspecified Qualifiers: Sinusitis location: ethmoidal Chronicity: acute Recurrence: non- recurrent Qualified Code(s): J01.20 - Acute ethmoidal sinusitis, unspecified Plan Patient is a 57-year-old female comes to the walk-in clinic complaining of sinus pressure along with nasal congestion and productive cough with chest congestion for about 3 weeks. Apparently had an insidious onset, so possibly this was underlying allergy induced, as she does have a history, however she has been taking Zyrtec and using Flonase for some time. She does not remember an acute onset, however even if it was viral she is now 3 weeks out and so viral testing was considered but patient declines. At this point due to her complaint of purulent phlegm in addition to sinus pressure radiating to the left jaw, we will treat her with a course of azithromycin, which did clear similar symptoms for her in the past (more than half a year ago). She also can take benzonatate for the cough, and she will continue with Mucinex and adequate water intake, as well as continuing Tylenol and ibuprofen alternatively for the sinus pressure and jaw pain. Probiotic use was advised to decrease GI issues from the antibiotic, he ecially as she has a history of colitis. She knows to monitor symptoms and to follow up if they persist or worsen, or to go to emergency department with worrisome symptoms. She can take benzonatate for the cough as well as Mucinex with adequate water intake. Other supportive care discussed. She knows to follow up if symptoms persist or worsen. Medications: New azithromycin take 500 mg today (day 1), then 250 mg for 4 days (days 2-5) PO 6 tabs 0RF benzonatate 100 mg PO BID-TID PRN 30 caps 0RF cough Coding Level of Care Code Est Pt Level 4 (04833) Diagnoses Acute non-recurrent ethmoidal sinusitis J01.20 Sinusitis location: ethmoidal Chronicity: acute Recurrence: non-recurrent
== END 2023-10-31 09:48 | disposition home or self-care (01) ==
PROVIDERS: PCP Internal Medicine; Visit Provider Physician Assistant Medical
DX: J01.20 Acute ethmoidal sinusitis, unspecified (principal)
CPT/HCPCS: 99214

== ENCOUNTER 2024-02-13 09:20 | Outpatient (REF) | payer OTHER, SELFPAY ==
[2024-02-13 12:03] LABS: Alanine Aminotransferase 14 U/L (0-31); Albumin Level 4.8 g/dL (3.5-5.0); Alkaline Phosphatase 74 U/L (39-117); Anion Gap 14 (12-20); Aspartate Amino Transferase 18 U/L (5-31); Bilirubin Total 0.4 mg/dL (0.0-1.0); Blood Urea Nitrogen 15 mg/dL (9-16); Calcium 10.6 mg/dL (8.4-10.2); Carbon Dioxide 29 mmol/L (22-29); Chloride 103 mmol/L (96-108); Cholesterol 276 mg/dL (<200); Estimated Glomerular Filt Rate > 60; Glucose Fasting 91 mg/dL (60-99); HDL Cholesterol 63 mg/dL (>40); LDL Cholesterol Calculated 194 mg/dL (<100); Potassium 4.8 mmol/L (3.3-5.1); Sodium 141 mmol/L (135-145); Triglycerides 99 mg/dL (<150)
== END 2024-02-13 09:21 | disposition home or self-care (01) ==
LOC: HO.LAB 09:20
PROVIDERS: PCP Internal Medicine; Visit Provider Internal Medicine
DX: I10 Essential (primary) hypertension (principal); E78.5 Hyperlipidemia, unspecified
CPT/HCPCS: 36415; 80053; 80061

== ENCOUNTER 2024-02-24 16:02 | Outpatient (AMB) | payer OTHER, SELFPAY ==
[2024-02-24 16:12] VITALS: BP 120/80; BMI 31.8
--- NOTE | 2024-02-24 16:12 | MHC.PC.OV ---
Vital Signs 02/24/24 16:12 Height 5 ft 4 in Weight 185 lb BMI 31.8 BP 120/80 Blood Pressure Location Lt brachial Position Sitting Intake Visit Reasons: pe Intake Note: Patient here for a physical exam [employer] Professor Required: No Accompanied by: Self / Same As Patient Allergies No Known Allergies Allergy (Verified 02/24/24 16:23) Medication List - Last Reconciled 02/24/24 by Rebecca Koenig MD alprazolam 0.5 mg PO BID PRN 10 days buspirone 10 mg PO BID 90 days cetirizine (Zyrtec) 10 mg PO DAILY fluticasone propionate 50 mcg/actuation (Flonase Allergy Relief) 1 spray intranasal DAILY 90 days ibuprofen 800 mg PO Q8H PRN 90 days lisinopril-hydrochlorothiazide 10-12.5 mg 1 tab PO DAILY 90 days omeprazole 20 mg PO DAILY 90 days Tobacco use date assessed: 02/24/24 Dental Screening Dental Screen Date: 02/24/24 Did you have a dental visit in the last 12 months?: Yes Did you have a dental problem in the last 6 months where you did not have access to dental care?: No Was dental information given to patient?: Patient has dentist HPI HPI Comments History of Present Illness Details This is a 58-year-old female that comes for her physical exam. No need for Pap smear due to hysterectomy. Had colonoscopy 2019 and next colonoscopy should be 2024. Last mammogram was 2022 less than a year ago at [facility] and was normal as per patient. [facility] Medical History GERD (gastroesophageal reflux disease) Dyslipidemia Fatty liver Hypertension Surgical History (Updated 02/24/24 @ 16:41 by Rebecca Koenig MD) History of colonoscopy History of laparoscopy History of section H/O: hysterectomy Family History Father Esophageal cancer Mother COPD (chronic obstructive pulmonary disease) Paternal Grandfather Diabetes Maternal Grandfather Substance abuse Maternal Grandmother Substance abuse Brother Substance abuse Other Mental problem Social History Housing: House Alcohol intake: never Patient Tobacco Use Status: Former Tobacco user e-Cigarette/Vaping Use: Never Used Second Hand Smoke Exposure: No service: No Current occupational status: employed 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 1. Little interest or pleasure in doing things: not at all 2. Feeling down, depressed, or hopeless: not at all 3. Trouble falling or staying asleep, or sleeping too much: not at all 4. Feeling tired or having little energy: not at all 5. Poor appetite or overeating: not at all 6. Feeling bad about yourself - or that you are a failure or have let yourself or your family down: not at all 7. Trouble concentrating on things, such as reading the newspaper or watching television: not at all 8. Moving or speaking so slowly that other people could have noticed. Or the opposite - being so fidgety or restless that you have been moving around a lot more than usual: not at all 9. Thoughts that you would be better off or of hurting yourself in some way: not at all Total score: 0 Depression Screening Interpretation: Negative Depression Screening Done: Yes 38582 - PHQ-9 Billing: Yes Source: Developed by Drs. Naveen Beasley, Priscila Bagley, Antonio Lind and colleagues, with an educational keegan from [employer]. Thrive Questionnaire Date Thrive assessed: 02/24/24 I am a: Patient What is your living situation today?: I have a steady place to live Within the past 12 months, did the food you bought not last and you didn't have the money to get more?: Never true Within the past 12 months, did you worry whether your food would run out before you got money to buy more?: Never true Do you have trouble paying for medicines?: No Do you have trouble getting transportation to medical appointments?: No Do you have trouble paying your heating and electricity bill?: No Do you have trouble taking care of your child, family member or friend?: No Do you have trouble with day-to-day activities such as bathing, preparing meals, shopping, managing finances, etc.?: No Are you currently unemployed and looking for a job?: No Are you interested in more education?: No Please select the resources that you would like help with: None Currently or been in a relationship where the following occur: No concerns reported THRIVE Score: 0 TORIBIO-7 AMB Questionnaire TORIBIO-7 Date TORIBIO - 7 assessed: 02/24/24 Feeling nervous, anxious, or on edge: 2 = More than half the days Not being able to stop or control worryin = More than half the days Worrying too much about different things: 2 = More than half the days Trouble relaxin = Not at all Being so restless that it is hard to sit still: 0 = Not at all Becoming easily annoyed or irritable: 0 = Not at all Feeling afraid as if something awful might happen: 1 = Several days Total TORIBIO-7 score (0-4 normal; 5-9 mild; 10-14 moderate; 15-21 severe): 7 Source: Developed by Drs. Naveen Beasley, Priscila Bagley, Antonio Lind and colleagues, with an educational keegan from [employer]. TORIBIO-7 Assessment Billing TORIBIO-7 Assessment Tool: TORIBIO-7 Assessment 26217 Review of Systems Const All systems reviewed & are unremarkable except as noted in HPI and below Card Denies chest pain at rest, Denies chest pain with activity, Denies edema, Denies irregular heart rhythm, Denies claudication, Denies dyspnea, Denies dyspnea on exertion, Denies orthopnea, Denies paroxysmal nocturnal dyspnea and Denies slow heart rate Resp Denies cough, Denies dyspnea and Denies dyspnea on exertion Physical exam (Primary Care) Vital Signs: Last Vital Signs BP 120/80 02/24/24 16:12 BMI result Body Mass Index 31.8 BMI Assessment/Plan discussion: High BMI High, discussed plan: lifestyle, weight reduction, dietary and physical activity Tobacco/Smoking Status: Tobacco use Status Tobacco use date assessed 02/24/24 02/24/24 16:17 Patient Tobacco Use Status Former Tobacco user 02/24/24 16:17 e-Cigarette/Vaping Use Never Used 02/24/24 16:17 PHQ-9: PHQ-9 Score PHQ-9: Total score 0 02/24/24 16:41 Depression Screening Interpretation: Negative Thrive Assessment: Date of Thrive Assessment Date Thrive assessed 02/24/24 02/24/24 16:19 Currently or been in a relationship where the following occur: No concerns reported [facility] Head: Yes normal to inspection, Yes normocephalic and Yes atraumatic Ears: external ears normal Eyes General: appearance normal, both eyes and all related structures Eyelids: Yes eyelids normal Conjunctivae: conjunctivae normal Neck Neck: Yes normal visual inspection and Yes supple Resp Effort & Inspection: normal respiratory effort Auscultation: clear to auscultation bilaterally Cardio Jugular venous distension: no JVD Rate: regular rate Rhythm: regular rhythm Heart sounds: S1 normal heart sound present and S2 normal heart sound present GI Inspection: Yes normal to inspection Palpation (GI): Soft to palpation and nontender Auscultation: normal bowel sounds Skin General skin exam: no rashes or lesions noted Neuro General: no focal motor deficits Extrem General: Yes full ROM Psych Appearance: grossly normal Assessment and Plan Assessment & Plan (1) Physical exam: Code(s): Z00.00 - Encounter for general adult medical examination without abnormal findings Plan: Repeat in a year. Coding Level of Care Code Est Pt Prev Care 40-64y(35922) Diagnoses Physical exam Z00.00 Additional Codes TORIBIO-7 Assessment Billing - TORIBIO-7 Assessment Tool: TORIBIO-7 Assessment 65559 ([id number]) Time Spent (min) 31
== END 2024-02-24 16:37 | disposition home or self-care (01) ==
PROVIDERS: PCP Internal Medicine; Visit Provider Internal Medicine
DX: Z00.00 Encounter for general adult medical examination without abnormal findings (principal)
CPT/HCPCS: 99396

== ENCOUNTER → 2024-08-24 15:50 | Outpatient (BNVA) | payer OTHER, SELFPAY | PROVIDERS: PCP Internal Medicine; Visit Provider Internal Medicine | DX: I10 Essential (primary) hypertension (principal); K21.9 Gastro-esophageal reflux disease without esophagitis; F41.1 Generalized anxiety disorder; J30.9 Allergic rhinitis, unspecified; Z79.899 Other long term (current) drug therapy | CPT/HCPCS: 96127 ==

== ENCOUNTER 2025-02-25 08:06 | Outpatient (REF) | payer BC, SELFPAY ==
[2025-02-25 09:21] LABS: Alanine Aminotransferase 28 U/L (0-31); Albumin Level 4.7 g/dL (3.5-5.0); Alkaline Phosphatase 76 U/L (39-117); Anion Gap 12 (12-20); Aspartate Amino Transferase 26 U/L (5-31); Blood Urea Nitrogen 17 mg/dL (9-16); Calcium 9.3 mg/dL (8.4-10.2); Carbon Dioxide 30 mmol/L (22-29); Chloride 104 mmol/L (96-108); Cholesterol 282 mg/dL (<200); Estimated Glomerular Filt Rate > 60; HDL Cholesterol 56 mg/dL (>40); Potassium 4.9 mmol/L (3.3-5.1); Sodium 141 mmol/L (135-145); Total Protein 7.5 g/dL (6.5-8.0); Triglycerides 132 mg/dL (<150)
== END 2025-02-25 08:07 | disposition home or self-care (01) ==
LOC: HO.LAB 08:06
PROVIDERS: PCP Internal Medicine; Visit Provider Internal Medicine
DX: I10 Essential (primary) hypertension (principal); E78.5 Hyperlipidemia, unspecified
CPT/HCPCS: 36415; 80053; 80061

== ENCOUNTER 2025-02-28 14:56 | Outpatient (AMB) | payer BC, SELFPAY ==
--- NOTE | 2025-02-28 14:59 | MHC.PC.OV ---
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 Accompanied by: Self / Same As Patient Allergies No Known Allergies Allergy (Verified 02/28/25 15:17) Medication List - Last Reconciled 02/28/25 by Rebecca Koenig MD alprazolam 0.5 mg PO BID PRN 10 days buspirone 10 mg PO BID 90 days cetirizine (Zyrtec) 10 mg PO DAILY fluticasone propionate 50 mcg/actuation (Flonase Allergy Relief) 1 spray intranasal DAILY 90 days ibuprofen 800 mg PO Q8H PRN 90 days lisinopril-hydrochlorothiazide 10-12.5 mg 1 tab PO DAILY 90 days omeprazole 20 mg PO DAILY 90 days Tobacco use date assessed: 02/28/25 Dental Screening Dental Screen Date: 02/28/25 Did you have a dental visit in the last 12 months?: Yes Did you have a dental problem in the last 6 months where you did not have access to dental care?: No Was dental information given to patient?: Patient has dentist HPI HPI Comments History of Present Illness Details The patient is a 59-year-old female presenting for a physical exam and review of blood work results. The patient has a history of essential hypertension, currently managed with lisinopril and hydrochlorothiazide, which she took today. Her blood pressure was measured at 146 mmHg systolic during the visit, indicating a slight elevation. She also has a history of hyperlipidemia, with current total cholesterol at 282 mg/dL, slightly elevated from 276 mg/dL previously. The patient previously discontinued statin therapy due to elevated liver enzymes, which normalized after cessation. The patient reports minimal depression, with a PHQ-9 score indicating very low severity. She has a history of gastroesophageal reflux disease, managed with daily omeprazole, despite guidelines suggesting tapering. Preventative care measures include being up to date with mammogram and colonoscopy screenings. Family history includes esophageal cancer in her father and chronic obstructive pulmonary disease in her mother. The patient quit smoking nearly 37 years ago and does not consume alcohol. [facility] Medical History GERD (gastroesophageal reflux disease) Dyslipidemia Fatty liver Hypertension Surgical History History of colonoscopy History of laparoscopy History of section H/O: hysterectomy Family History Father Esophageal cancer Mother COPD (chronic obstructive pulmonary disease) Paternal Grandfather Diabetes Maternal Grandfather Substance abuse Maternal Grandmother Substance abuse Brother Substance abuse Other Mental problem Social History Housing: House Alcohol intake: never Patient Tobacco Use Status: Former Tobacco user e-Cigarette/Vaping Use: Never Used Second Hand Smoke Exposure: No service: No Current occupational status: employed 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 1. Little interest or pleasure in doing things: not at all 2. Feeling down, depressed, or hopeless: several days 3. Trouble falling or staying asleep, or sleeping too much: not at all 4. Feeling tired or having little energy: not at all 5. Poor appetite or overeating: more than half the days 6. Feeling bad about yourself - or that you are a failure or have let yourself or your family down: more than half the days 7. Trouble concentrating on things, such as reading the newspaper or watching television: not at all 8. Moving or speaking so slowly that other people could have noticed. Or the opposite - being so fidgety or restless that you have been moving around a lot more than usual: not at all 9. Thoughts that you would be better off or of hurting yourself in some way: not at all Total score: 5 Depression Screening Interpretation: Positive Depression Screening Follow-up: Existing condition and Follow-up Visit Requested Depression Screening Done: Yes 47933 - PHQ-9 Billing: Yes Source: Developed by Drs. Naveen Beasley, Priscila Bagley, Antonio Lind and colleagues, with an educational keegan from [employer]. Thrive Questionnaire Date Thrive assessed: 02/28/25 I am a: Patient What is your living situation today?: I have a steady place to live Within the past 12 months, did the food you bought not last and you didn't have the money to get more?: Never true Within the past 12 months, did you worry whether your food would run out before you got money to buy more?: Never true Do you have trouble paying for medicines?: No Do you have trouble getting transportation to medical appointments?: No Do you have trouble paying your heating and electricity bill?: No Do you have trouble taking care of your child, family member or friend?: No Do you have trouble with day-to-day activities such as bathing, preparing meals, shopping, managing finances, etc.?: No Are you currently unemployed and looking for a job?: No Are you interested in more education?: No Please select the resources that you would like help with: None Currently or been in a relationship where the following occur: No concerns reported THRIVE Score: 0 AUDIT C Alcohol Use Questionnaire (AUDIT-C) 1. How often do you have a drink containing alcohol?: Monthly or less 2. How many drinks containing alcohol do you have on a typical day when you are drinking?: 1 or 2 3. How often do you have six or more drinks on one occasion?: Never Total Score: 1 TORIBIO-7 AMB Questionnaire TORIBIO-7 Date TORIBIO - 7 assessed: 02/28/25 Feeling nervous, anxious, or on edge: 1 = Several days Not being able to stop or control worryin = Several days Worrying too much about different things: 1 = Several days Trouble relaxin = Several days Being so restless that it is hard to sit still: 0 = Not at all Becoming easily annoyed or irritable: 0 = Not at all Feeling afraid as if something awful might happen: 1 = Several days Total TORIBIO-7 score (0-4 normal; 5-9 mild; 10-14 moderate; 15-21 severe): 5 Source: Developed by Drs. Naveen Beasley, Priscila Bagley, Antonio Lnid and colleagues, with an educational keegan from [employer]. TORIBIO-7 Assessment Billing TORIBIO-7 Assessment Tool: TORIBIO-7 Assessment 48269 Review of Systems Const All systems reviewed & are unremarkable except as noted in HPI and below Card Denies chest pain at rest, Denies chest pain with activity, Denies edema, Denies irregular heart rhythm, Denies claudication, Denies dyspnea, Denies dyspnea on exertion, Denies orthopnea, Denies paroxysmal nocturnal dyspnea and Denies slow heart rate Resp Denies cough, Denies dyspnea and Denies dyspnea on exertion GI Denies abdominal pain, Denies change in bowel habits, Denies excessive flatus, Denies nausea and Denies vomiting Denies urinary incontinence, Denies urinary hesitancy and Denies urinary urgency Musc Denies atrophy, Denies deformity and Denies limited range of motion Physical exam (Primary Care) Vital Signs: Last Vital Signs Pulse 88 02/28/25 15:01 BP 146/96 H 02/28/25 15:01 Pulse Ox 96 02/28/25 15:01 Oxygen Delivery Method Room Air 02/28/25 15:01 BMI result Body Mass Index 35.0 Tobacco/Smoking Status: Tobacco use Status Tobacco use date assessed 02/28/25 02/28/25 15:06 Patient Tobacco Use Status Former Tobacco user 02/28/25 15:06 e-Cigarette/Vaping Use Never Used 02/28/25 15:06 PHQ-9: PHQ-9 Score PHQ-9: Total score 5 02/28/25 15:06 Depression Screening Interpretation: Positive Depression Screening Follow-up: Existing condition and Follow-up Visit Requested Thrive Assessment: Date of Thrive Assessment Date Thrive assessed 02/28/25 02/28/25 15:06 Currently or been in a relationship where the following occur: No concerns reported [facility] Head: Yes normal to inspection, Yes normocephalic and Yes atraumatic Ears: external ears normal Eyes General: appearance normal, both eyes and all related structures Eyelids: Yes eyelids normal Conjunctivae: conjunctivae normal Neck Neck: Yes normal visual inspection and Yes supple Resp Effort & Inspection: normal respiratory effort Auscultation: clear to auscultation bilaterally Cardio Jugular venous distension: no JVD Rate: regular rate Rhythm: regular rhythm Heart sounds: S1 normal heart sound present and S2 normal heart sound present GI Inspection: Yes normal to inspection Palpation (GI): Soft to palpation and nontender Auscultation: normal bowel sounds Skin General skin exam: no rashes or lesions noted Neuro General: no focal motor deficits Extrem General: Yes full ROM Psych Appearance: grossly normal Coding Level of Care Code Est Pt Prev Care 40-64y(85339) Diagnoses Physical exam Z00.00 Additional Codes TORIBIO-7 Assessment Billing - TORIBIO-7 Assessment Tool: TORIBIO-7 Assessment 61601 ([id number]) PHQ-9 - 90796 - PHQ-9 Billing: Yes ([id number]) Time Spent (min) 35 Assessment & Plan Assessment & Plan (1) Physical exam: Code(s): Z00.00 - Encounter for general adult medical examination without abnormal findings Category: Medical Plan The plan includes addressing the patient's elevated cholesterol levels by initiating a low-dose statin therapy, specifically rosuvastatin 5 mg, to be sent to [facility] for a 90-day supply with one refill. Blood work will be repeated in six months to monitor liver enzyme levels and cholesterol response to the statin therapy. The patient's blood pressure will be re-evaluated in three weeks, and if still elevated, adjustments to the current antihypertensive regimen may be considered, potentially increasing lisinopril or hydrochlorothiazide dosage. Lifestyle modifications, including dietary changes and weight management, were discussed to aid in controlling cholesterol and blood pressure. Patient was informed and verbally consented to the use of an ambient scribe for clinic note documentation during this visit. Orders: Orders Comprehensive [place]. Panel Fast 6 Months I10 - Essential (primary) hypertension Lipid Panel 6 Months E78.5 - Hyperlipidemia, unspecified Medications: New rosuvastatin 5 mg PO DAILY 90 tabs 1RF 90 days
[2025-02-28 15:01] VITALS: BP 146/96; PULSE 88; O2SAT 96; BMI 35.0
== END 2025-02-28 15:46 | disposition home or self-care (01) ==
LOC: HO.HMCH 14:57
PROVIDERS: PCP Internal Medicine; Visit Provider Internal Medicine
DX: Z00.00 Encounter for general adult medical examination without abnormal findings (principal)

== ENCOUNTER → 2025-02-28 14:56 | Outpatient (BNVA) | payer BC, SELFPAY | PROVIDERS: PCP Internal Medicine; Visit Provider Internal Medicine | DX: Z00.00 Encounter for general adult medical examination without abnormal findings (principal); I10 Essential (primary) hypertension; E78.5 Hyperlipidemia, unspecified; K21.9 Gastro-esophageal reflux disease without esophagitis; Z87.891 Personal history of nicotine dependence; Z79.899 Other long term (current) drug therapy | CPT/HCPCS: 96127 ==

== ENCOUNTER 2025-04-01 09:16 | Outpatient (AMB) | payer BC, SELFPAY ==
--- NOTE | 2025-04-01 09:19 | MHC.OFFWIV ---
Intake Vital Signs 04/01/25 09:20 Height 5 ft 4 in Weight 209 lb BMI 35.9 BP 102/70 Blood Pressure Location Lt brachial Position Sitting Respiration 16 Pulse 79 Pulse Source Pulse Oximeter Temp 98.8 F Temp Source Oral Pulse Oximetry (%) 98 Oxygen Delivery Method Room Air Intake Visit Reasons: EP-Congestion, Cough Intake Note: Pt is here today c/o chest congestion and a cough 2.5weeks Patient Tobacco Use Status: Former Tobacco user Allergies No Known Allergies Allergy (Verified 04/01/25 09:23) HPI HPI Comments History of Present Illness Details This is a 59-year-old female with a past medical history of seasonal allergies managed with Zyrtec and Flonase daily presenting for evaluation of cough and wheezing that she has had for the past 2-1/2 weeks coupled with postnasal drip. Patient states that she will cough only when lying in bed and does not report any overt shortness for breath. She denies having any fevers, chills, otalgia, pharyngitis or chest pain. Additionally, patient denies having any sick contacts. [facility] Medical History GERD (gastroesophageal reflux disease) Dyslipidemia Fatty liver Hypertension Surgical History History of colonoscopy History of laparoscopy History of section H/O: hysterectomy Family History Father Esophageal cancer Mother COPD (chronic obstructive pulmonary disease) Paternal Grandfather Diabetes Maternal Grandfather Substance abuse Maternal Grandmother Substance abuse Brother Substance abuse Other Mental problem Social History Housing: House Alcohol intake: never Patient Tobacco Use Status: Former Tobacco user e-Cigarette/Vaping Use: Never Used Second Hand Smoke Exposure: No service: No Current occupational status: employed 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 Current occupational exposures/hazards: No Cognitive needs: No Hearing needs: No Vision needs: Yes (Glasses) Review of Systems Const All systems reviewed & are unremarkable except as noted in HPI and below Denies body aches, Denies chills, Denies fatigue, Denies fever(s) and Denies headache(s) Eyes Reports no additional complaints and Denies itchy eyes ENT Denies otalgia, Denies headache(s), Denies odynophagia, Denies sinus pain, Reports sinus pressure, Denies sore throat, Denies throat swelling and Denies tongue swelling Card Denies chest pain, Denies dyspnea and Denies dyspnea on exertion Resp Reports cough (when supine), Denies dyspnea, Denies dyspnea on exertion and Reports wheezing GI Denies odynophagia Neuro Denies headache(s) Psych Reports no additional complaints Endo Denies fatigue Aller/Immun Denies itchy eyes, Reports seasonal rhinorrhea, Denies throat swelling, Denies tongue swelling and Reports wheezing Physical Exam Vital Signs: Last Vital Signs Temp 209 F H 04/01/25 09:20 Pulse 79 04/01/25 09:20 Resp 16 04/01/25 09:20 BP 102/70 04/01/25 09:20 Pulse Ox 98 04/01/25 09:20 Oxygen Delivery Method Room Air 04/01/25 09:20 BMI result Body Mass Index 35.9 Patient is afebrile Const General: cooperative, healthy appearing, comfortable, no acute distress, well developed, alert, awake and Physically active; No acute distress, in distress, ill appearing or tired appearing Nutritional Appearance: well nourished Orientation/consciousness: patient oriented x3 Limitations: no limitations HEENT Head: Yes normal to inspection and Yes normocephalic Ears: hearing grossly normal bilaterally, TM normal on the right, left TM abnormal (TM bulging without erythema or fluid level) and EAC's normal General nose exam: Normal external nose present Face and sinus: Yes normal facial exam and Yes sinuses nontender Mouth: Normal oral and palatal mucosa present and moist mucous membranes Throat: Yes posterior oropharynx normal (There is no edema, erythema or exudates of the posterior oropharynx) and Yes postnasal drainage Eyes General: appearance normal, both eyes and all related structures Neck Lymphatic: no lymphadenopathy noted Resp Effort & Inspection: normal respiratory effort, able to speak in complete sentences, no audible wheezes, no cough, not labored, no nasal flaring, no respiratory distress and not tachypneic Auscultation: wheezes expiratory wheezes, inspiratory wheezes, upper bilaterally and throughout Cardio Rate: regular rate Rhythm: regular rhythm Skin General skin exam: no rashes or lesions noted Neuro General: patient oriented x3 Psych Appearance: grossly normal Mental Status: mental status grossly normal Insight: Good insight present (Psych) Judgement: Good judgement present (Psych) Assessment & Plan Assessment & Plan (1) Wheezing due to allergy: Comment: Patient is well-appearing and in no acute distress. Patient will continue Flonase and Zyrtec daily and will be prescribed an albuterol inhaler to use every 6 hours only as needed. Code(s): T78.40XA - Allergy, unspecified, initial encounter; R06.2 - Wheezing Plan: Albuterol 1 puff every 6 hours p.r.n. wheezing, follow up with PCP for any worsening symptoms. Medications: New albuterol sulfate 90 mcg/actuation (Ventolin HFA) 1 puff inhalation Q6H PRN 8.5 grams 1RF shortness of breath or wheezing Coding Level of Care Code Est Pt Level 3 (45185) Diagnoses Wheezing due to allergy T78.40XA; R06.2 Time Spent (min) 20
[2025-04-01 09:20] VITALS: BP 102/70; PULSE 79; RESP 16; TEMP 37.1; O2SAT 98; BMI 35.9
== END 2025-04-01 09:58 | disposition home or self-care (01) ==
LOC: HO.HMCWIC 09:16
PROVIDERS: PCP Internal Medicine; Visit Provider Physician Assistant
DX: T78.40XA Allergy, unspecified, initial encounter (principal); R06.2 Wheezing

== ENCOUNTER 2025-04-08 09:05 | Outpatient (AMB) | payer BC, SELFPAY ==
[2025-04-08 09:06] VITALS: BP 124/80; PULSE 82; RESP 17; TEMP 37.3; O2SAT 96; BMI 35.9
--- NOTE | 2025-04-08 09:06 | MHC.OFFWIV ---
Intake Vital Signs 04/08/25 09:06 Height 5 ft 4 in Weight 209 lb BMI 35.9 BP 124/80 Blood Pressure Location Lt brachial Position Sitting Respiration 17 Pulse 82 Pulse Source Pulse Oximeter Temp 99.1 F Temp Source Oral Pulse Oximetry (%) 96 Oxygen Delivery Method Room Air Intake Visit Reasons: EP-wheezing, cough, chest congestion Intake Note: Pt is here today c/o wheezing,cough and chest congestion x3wks Patient Tobacco Use Status: Former Tobacco user Allergies No Known Allergies Allergy (Verified 04/08/25 09:07) HPI EP-wheezing, cough, chest congestion HPI Details Patient is a 59-year-old female with history of asthma versus COPD, as well as dyslipidemia hypertension and GERD, but no underlying asthma, COPD, who comes to the walk-in clinic complaining of 3 weeks of cough, wheezing and postnasal drip. She reports that she has year-round allergies, for which she only takes jukd-fke-[id number] medication. She has never trialed allergy injections for prophylactic treatment, as she reports that she does not have the time to take out of work for that. She came to the walk-in a week ago, and was given inhaler due to the wheezing in her chest, which she reports does help for a short while, however she does continue to cough. Symptoms are worse when she is lying supine, but do persist while upright. Her sputum is clear, and not purulent. She never had fever or chills, nausea vomiting or diarrhea, malaise or myalgias, weakness, dizziness or headache, or other significant associated symptoms. She did not have known sick contacts and she was not tested for viral illnesses as of yet. [facility] Medical History GERD (gastroesophageal reflux disease) Dyslipidemia Fatty liver Hypertension Surgical History History of colonoscopy History of laparoscopy History of section H/O: hysterectomy Family History Father Esophageal cancer Mother COPD (chronic obstructive pulmonary disease) Paternal Grandfather Diabetes Maternal Grandfather Substance abuse Maternal Grandmother Substance abuse Brother Substance abuse Other Mental problem Social History (Reviewed 04/08/25 @ 09:15 by NEISHA Patterson Housing: House Alcohol intake: never Patient Tobacco Use Status: Former Tobacco user e-Cigarette/Vaping Use: Never Used Second Hand Smoke Exposure: No service: No Current occupational status: employed 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 Current occupational exposures/hazards: No Cognitive needs: No Hearing needs: No Vision needs: Yes (Glasses) Review of Systems Const All systems reviewed & are unremarkable except as noted in HPI and below Physical Exam Vital Signs: Last Vital Signs Temp 99.1 F 04/08/25 09:06 Pulse 82 04/08/25 09:06 Resp 17 04/08/25 09:06 BP 124/80 04/08/25 09:06 Pulse Ox 96 04/08/25 09:06 Oxygen Delivery Method Room Air 04/08/25 09:06 BMI result Body Mass Index 35.9 Const General: cooperative, comfortable, no acute distress, alert, awake, Physically active and well groomed; No anxious, diaphoretic, ill appearing, intoxicated appearing, poor hygiene or tired appearing Orientation/consciousness: oriented to person Limitations: no limitations HEENT Head: Yes normal to inspection, Yes normocephalic and Yes atraumatic Ears: hearing grossly normal bilaterally, external ears normal, EAC's normal and TM abnormal (Bilateral, slightly retracted on the left with fluid bubbles) with fluid behind the TM, with loss of landmarks and retracted; not bulging, not obstructed by cerumen and not perforated General nose exam: Normal external nose present, Normal nares present, No nasal polyps present, Normal nasal mucous membranes and turbinates present, Normal septum present and No nasal discharge present Face and sinus: Yes normal facial exam, Yes sinuses nontender and Yes face symmetric Mouth: Normal oral and palatal mucosa present, lip normal and tongue normal Throat: Yes posterior oropharynx normal, No peritonsillar mass, No uvular edema and No cobblestoning Eyes General: appearance normal, both eyes and all related structures Neck Neck: Yes normal visual inspection, Yes no lymphadenopathy, Yes trachea midline, Yes supple and No anterior neck swelling Chest Chest palpation & inspection: normal palpation of entire chest wall Resp Effort & Inspection: normal respiratory effort, able to speak in complete sentences, normal respiratory pattern, no audible wheezes, Actively coughing (Dry frequent), no grunting, not labored, no nasal flaring, no pursed lip breathing, no respiratory distress, no retractions, no segmental paradox chest wall movement, no stridor, not tachypneic, no tripod positioning, no use of accessory muscles, No prolonged expiratory phase and symmetric chest movement Auscultation: clear to auscultation bilaterally, no crackles, no rales, no rhonchi, wheezes (Inspiratory as well as expiratory) throughout, lung sounds not diminished and No rub present Percussion: percussion normal Cardio Rate: regular rate Rhythm: regular rhythm Skin Other: Good color, warm and dry Neuro General: oriented to person Psych Appearance: grossly normal Mental Status: mental status grossly normal Speech and movement: Normal speech and movement present Affect: normal affect Attitude: cooperative Thought process: Normal thought process present Insight: Good insight present (Psych) Judgement: Good judgement present (Psych) Results Reviewed Results Reviewed: Plain chest x-ray shows no acute cardiopulmonary issues on my wet read Assessment & Plan Assessment & Plan (1) RAD (reactive airway disease) with wheezing: Code(s): J45.909 - Unspecified asthma, uncomplicated Qualifiers: Asthma complication type: uncomplicated Asthma persistence: intermittent Asthma severity: mild Qualified Code(s): J45.20 - Mild intermittent asthma, uncomplicated Plan Patient is a 59-year-old female with no underlying chronic respiratory issues, who comes to the walk-in clinic with chronic cough for 3 weeks. She declines flu COVID and RSV viral testing. She does have longstanding allergy issues, for which she takes ueat-pdr-svlblxi medication only. She has persistent serous fluid bilateral membranes, and I think this is the cause of her persistent postnasal drip and cough. However at this point, she now has a reactive airway, and would benefit from a course of prednisone taper. 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 Especially as she is aware that she has poor Eustachian tube drainage on the left side, and this could lead to otitis media as this could lead to otitis media. She can continue the Flonase and the wkvl-whn-reneaga medication, however she should try changing to a new allergy medication. She could also trial montelukast, and we did discuss that her symptoms might not reoccur to this degree if she trialed allergy injections. If symptoms persist, she might be a good candidate for seeing ENT. I advised that she talk with her primary care to discuss follow up as needed Orders: Orders XR chest 2V Today R05.9 - Cough, unspecified Medications: New amoxicillin-pot clavulanate 875-125 mg 1 tab PO BID 14 tabs 0RF prednisone then take 3 tabs for 3 days, then 2 tabs for 3 days, then 1 tab for 3 days. 40 mg (4 x 10 mg) PO DAILY 30 tabs 0RF 3 days benzonatate 200 mg PO BID-TID PRN 30 caps 0RF cough Coding Level of Care Code Est Pt Level 4 (27312) Diagnoses Mild intermittent reactive airway disease with wheezing without complication J45.20 Asthma complication type: uncomplicated Asthma persistence: intermittent Asthma severity: mild
== END 2025-04-08 10:02 | disposition home or self-care (01) ==
PROVIDERS: PCP Internal Medicine; Visit Provider Physician Assistant Medical
DX: J45.20 Mild intermittent asthma, uncomplicated (principal)

== ENCOUNTER 2025-04-08 09:05 | Outpatient (REF) | payer BC, SELFPAY ==
--- NOTE | ~2025-04-08 | XR_ITS ---
CLINICAL HISTORY: R05.9 - Cough, unspecified --- Additional Notes or Special Instructions: 3 weeks cough, wheezing all hinojosa, no fever 2 view chest x-ray Comparison: None provided Findings: No consolidation or effusion. Normal size heart. No acute fracture. IMPRESSION: 1. No acute findings. This document has been electronically signed by: Ligia Caceres MD on 04/08/2025 13:28:25
== END 2025-04-08 09:06 | disposition home or self-care (01) ==
LOC: HO.HMGCX 09:05
PROVIDERS: PCP Internal Medicine; Visit Provider Physician Assistant Medical
DX: J45.20 Mild intermittent asthma, uncomplicated (principal); Z87.891 Personal history of nicotine dependence
CPT/HCPCS: 71046

== ENCOUNTER → 2025-04-08 09:35 | Outpatient (BNV) | payer BC, SELFPAY | PROVIDERS: PCP Internal Medicine; Visit Provider Radiology Diagnostic Radiology | DX: R05.9 Cough, unspecified (principal) | CPT/HCPCS: 71046 ==

== ENCOUNTER 2025-05-24 16:13 | Outpatient (AMB) | payer BC, SELFPAY ==
[2025-05-24 16:29] VITALS: BP 122/80; PULSE 94; O2SAT 94; BMI 36.1
--- NOTE | 2025-05-24 16:29 | MHC.PC.OV ---
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 Accompanied by: Self / Same As Patient Allergies No Known Allergies Allergy (Verified 05/24/25 17:01) Medication List - Last Reconciled 05/24/25 by Rebecca Koenig MD albuterol sulfate 90 mcg/actuation (Ventolin HFA) 1 puff inhalation Q6H PRN alprazolam 0.5 mg PO BID PRN 10 days buspirone 10 mg PO BID 90 days fexofenadine ([facility]) 60 mg PO BID fluticasone propionate 50 mcg/actuation (Flonase Allergy Relief) 1 spray intranasal DAILY 90 days ibuprofen 800 mg PO Q8H PRN 90 days lisinopril-hydrochlorothiazide 20-12.5 mg 1 tab PO DAILY 90 days omeprazole 20 mg PO DAILY 90 days prednisone 40 mg (4 x 10 mg) PO DAILY 3 days rosuvastatin 5 mg PO DAILY 90 days Tobacco use date assessed: 05/24/25 Dental Screening Dental Screen Date: 05/24/25 Did you have a dental visit in the last 12 months?: Yes Did you have a dental problem in the last 6 months where you did not have access to dental care?: No Was dental information given to patient?: Patient has dentist HPI HPI Comments History of Present Illness Details The patient is a 59-year-old female presenting with persistent wheezing, cough, and right thumb pain. She reports the onset of continuous wheezing at the end of February, which she suspects may be related to starting a higher dose of lisinopril and rosuvastatin around the same time. Initially, the wheezing was accompanied by a cough and significant post-nasal drip, which she attributed to her known allergies. Due to the symptoms, she visited an urgent care, where she was prescribed an inhaler and benzonatate, which she found ineffective for her cough. On a return visit to urgent care, a chest x-ray was unremarkable, and she was given another inhaler and an antibiotic to be used if needed, as her sputum was clear. She also received a course of prednisone which provided temporary relief. Presently, she feels she has a cold that is exacerbating the wheezing, which is particularly worse at night and disturbs her 's sleep. A COVID-19 test yesterday was negative. This morning, for the first time, she produced yellow sputum and experienced some shortness of breath, which prompted her to leave work. Separately, she developed an issue with her right thumb around summertime, describing a sore bump, pain, and a clicking or locking sensation on movement, which is worse in the mornings. Her pertinent medical history includes hypertension, managed with lisinopril-hydrochlorothiazide, allergies for which she has used an inhaler in the past, and colitis. She has no known medication allergies. Her current medications include an inhaler, alprazolam, buspirone, Lamar, a nasal spray, ibuprofen, lisinopril with hydrochlorothiazide, omeprazole, and rosuvastatin 5 mg. [facility] Medical History (Updated 05/24/25 @ 17:15 by Rebecca Koenig MD) GERD (gastroesophageal reflux disease) Dyslipidemia Fatty liver Hypertension Surgical History History of colonoscopy History of laparoscopy History of section H/O: hysterectomy Family History Father Esophageal cancer Mother COPD (chronic obstructive pulmonary disease) Paternal Grandfather Diabetes Maternal Grandfather Substance abuse Maternal Grandmother Substance abuse Brother Substance abuse Other Mental problem Social History Housing: House Alcohol intake: never Patient Tobacco Use Status: Former Tobacco user e-Cigarette/Vaping Use: Never Used Second Hand Smoke Exposure: No service: No Current occupational status: employed 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 1. Little interest or pleasure in doing things: not at all 2. Feeling down, depressed, or hopeless: several days 3. Trouble falling or staying asleep, or sleeping too much: not at all 4. Feeling tired or having little energy: not at all 5. Poor appetite or overeating: more than half the days 6. Feeling bad about yourself - or that you are a failure or have let yourself or your family down: more than half the days 7. Trouble concentrating on things, such as reading the newspaper or watching television: not at all 8. Moving or speaking so slowly that other people could have noticed. Or the opposite - being so fidgety or restless that you have been moving around a lot more than usual: not at all 9. Thoughts that you would be better off or of hurting yourself in some way: not at all Total score: 5 Depression Screening Interpretation: Positive Depression Screening Follow-up: Existing condition and Follow-up Visit Requested Depression Screening Done: Yes 60267 - PHQ-9 Billing: Yes Source: Developed by Drs. Naveen Beasley, Priscila Bagley, Antonio Lind and colleagues, with an educational keegan from [employer]. Thrive Questionnaire Date Thrive assessed: 05/24/25 I am a: Patient What is your living situation today?: I have a steady place to live Within the past 12 months, did the food you bought not last and you didn't have the money to get more?: Never true Within the past 12 months, did you worry whether your food would run out before you got money to buy more?: Never true Do you have trouble paying for medicines?: No Do you have trouble getting transportation to medical appointments?: No Do you have trouble paying your heating and electricity bill?: No Do you have trouble taking care of your child, family member or friend?: No Do you have trouble with day-to-day activities such as bathing, preparing meals, shopping, managing finances, etc.?: No Are you currently unemployed and looking for a job?: No Are you interested in more education?: No Please select the resources that you would like help with: None Currently or been in a relationship where the following occur: No concerns reported THRIVE Score: 0 AUDIT C Alcohol Use Questionnaire (AUDIT-C) 1. How often do you have a drink containing alcohol?: Monthly or less 2. How many drinks containing alcohol do you have on a typical day when you are drinking?: 1 or 2 3. How often do you have six or more drinks on one occasion?: Never Total Score: 1 TORIBIO-7 AMB Questionnaire TORIBIO-7 Date TORIBIO - 7 assessed: 05/24/25 Feeling nervous, anxious, or on edge: 1 = Several days Not being able to stop or control worryin = Several days Worrying too much about different things: 1 = Several days Trouble relaxin = Several days Being so restless that it is hard to sit still: 0 = Not at all Becoming easily annoyed or irritable: 0 = Not at all Feeling afraid as if something awful might happen: 1 = Several days Total TORIBIO-7 score (0-4 normal; 5-9 mild; 10-14 moderate; 15-21 severe): 5 Source: Developed by Drs. Naveen Beasley, Priscila Bagley, Antonio Lind and colleagues, with an educational keegan from [employer]. TORIBIO-7 Assessment Billing TORIBIO-7 Assessment Tool: TORIBIO-7 Assessment 04581 Review of Systems Const All systems reviewed & are unremarkable except as noted in HPI and below Card Denies chest pain at rest, Denies chest pain with activity, Denies edema, Denies irregular heart rhythm, Denies claudication, Denies dyspnea, Denies dyspnea on exertion, Denies orthopnea, Denies paroxysmal nocturnal dyspnea and Denies slow heart rate Resp Denies cough, Denies dyspnea and Denies dyspnea on exertion GI Denies abdominal pain, Denies change in bowel habits, Denies excessive flatus, Denies nausea and Denies vomiting Denies urinary incontinence, Denies urinary hesitancy and Denies urinary urgency Musc Denies atrophy, Denies deformity and Denies limited range of motion Skin/Breast Denies bleeding lesions, Denies changing lesions and Denies rash Physical exam (Primary Care) Vital Signs: Last Vital Signs Pulse 94 05/24/25 16:29 BP 122/80 05/24/25 16:29 Pulse Ox 94 05/24/25 16:29 Oxygen Delivery Method Room Air 05/24/25 16:29 BMI result Body Mass Index 36.1 BMI Assessment/Plan discussion: High BMI High, discussed plan: lifestyle, weight reduction, dietary and physical activity Tobacco/Smoking Status: Tobacco use Status Tobacco use date assessed 05/24/25 05/24/25 16:31 Patient Tobacco Use Status Former Tobacco user 05/24/25 16:31 e-Cigarette/Vaping Use Never Used 05/24/25 16:31 PHQ-9: PHQ-9 Score PHQ-9: Total score 5 05/24/25 17:06 Depression Screening Interpretation: Positive Depression Screening Follow-up: Existing condition and Follow-up Visit Requested Thrive Assessment: Date of Thrive Assessment Date Thrive assessed 05/24/25 05/24/25 16:31 Currently or been in a relationship where the following occur: No concerns reported Resp Effort & Inspection: audible wheezes Auscultation: wheezes expiratory wheezes and lower bilaterally Cardio Jugular venous distension: no JVD Rate: regular rate Rhythm: regular rhythm Heart sounds: S1 normal heart sound present and S2 normal heart sound present Extrem General: Yes full ROM Coding Level of Care Code Est Pt Level 4 (52586) Complex EM visit Add On G2211 Diagnoses Moderate asthma J45.909 Trigger finger M65.30 Gastroesophageal reflux disease, unspecified whether esophagitis present K21.9 Esophagitis presence: esophagitis presence not specified Allergic rhinitis J30.9 Primary hypertension I10 Hypertension type: primary hypertension Dyslipidemia E78.5 Additional Codes TORIBIO-7 Assessment Billing - TORIBIO-7 Assessment Tool: TORIBIO-7 Assessment 44664 ([id number]) PHQ-9 - 78913 - PHQ-9 Billing: Yes ([id number]) Time Spent (min) 24 Assessment & Plan Assessment & Plan (1) Moderate asthma: Code(s): J45.909 - Unspecified asthma, uncomplicated Category: Medical (2) Trigger finger: Code(s): M65.30 - Trigger finger, unspecified finger Category: Medical (3) GERD (gastroesophageal reflux disease): Code(s): K21.9 - Gastro-esophageal reflux disease without esophagitis Category: Medical Qualifiers: Esophagitis presence: esophagitis presence not specified Qualified Code(s): K21.9 - Gastro-esophageal reflux disease without esophagitis (4) Allergic rhinitis: Code(s): J30.9 - Allergic rhinitis, unspecified Category: Medical (5) Hypertension: Code(s): I10 - Essential (primary) hypertension Category: Medical Qualifiers: Hypertension type: primary hypertension Qualified Code(s): I10 - Essential (primary) hypertension (6) Dyslipidemia: Code(s): E78.5 - Hyperlipidemia, unspecified Category: Medical Plan Plan 1. Asthma Exacerbation / Acute Bronchitis The patient presents with symptoms highly suggestive of asthma, including chronic wheezing, with a recent exacerbation likely complicated by an acute bronchitis given the new onset of purulent sputum and shortness of breath. The onset of wheezing possibly coincides with a recent change in medication (lisinopril). Physical exam confirms severe bilateral wheezing. Plan is to prescribe Augmentin for a suspected bacterial component, refill prednisone to manage the acute inflammation, and initiate a long-acting maintenance inhaler, beclomethasone (Qvar). A referral will be placed to pulmonology for a definitive diagnosis and to obtain a pulmonary function test. 2. Essential Hypertension The patient's blood pressure is currently well-controlled, but the lisinopril component of her regimen is being discontinued due to suspicion that it could be causing her wheezing. The plan is to stop lisinopril/hydrochlorothiazide and switch to amlodipine 5 mg and a higher dose of hydrochlorothiazide 25 mg. 3. Trigger Finger, Right Thumb The patient reports a sore bump, pain, clicking, and locking of her right thumb that started in the summer, consistent with a trigger thumb. A referral will be made to a hand surgeon for further evaluation and potential local injection. 4. Hyperlipidemia Continue low-dose statin. Orders: Referrals Orthopedics Referral M65.30 - Trigger finger, unspecified finger Pulmonology Referral J45.909 - Unspecified asthma, uncomplicated Medications: New amlodipine 5 mg PO DAILY 90 tabs 0RF 90 days beclomethasone dipropionate 40 mcg/actuation 1 inh inhalation BID 10.6 grams 0RF 30 days J45.909 - Unspecified asthma, uncomplicated hydrochlorothiazide 25 mg PO DAILY 90 tabs 0RF 90 days amoxicillin-pot clavulanate 875-125 mg 1 tab PO BID 14 tabs 0RF 7 days Refilled prednisone then take 3 tabs for 3 days, then 2 tabs for 3 days, then 1 tab for 3 days. 40 mg (4 x 10 mg) PO DAILY 30 tabs 0RF 3 days Discontinued lisinopril-hydrochlorothiazide 20-12.5 mg Discontinued Reason: Patient Completed Course 1 tab PO DAILY 90 days 90 tabs 1RF
== END 2025-05-24 17:21 | disposition home or self-care (01) ==
LOC: HO.HMCH 16:13
PROVIDERS: PCP Internal Medicine; Visit Provider Internal Medicine
DX: J45.909 Unspecified asthma, uncomplicated (principal); M65.30 Trigger finger, unspecified finger; K21.9 Gastro-esophageal reflux disease without esophagitis; J30.9 Allergic rhinitis, unspecified; I10 Essential (primary) hypertension; E78.5 Hyperlipidemia, unspecified

== ENCOUNTER → 2025-05-24 16:13 | Outpatient (BNVA) | payer BC, SELFPAY | PROVIDERS: PCP Internal Medicine; Visit Provider Internal Medicine | DX: R05.3 Chronic cough (principal); J45.909 Unspecified asthma, uncomplicated; M65.311 Trigger thumb, right thumb; I10 Essential (primary) hypertension; K21.9 Gastro-esophageal reflux disease without esophagitis; E78.5 Hyperlipidemia, unspecified; Z79.899 Other long term (current) drug therapy | CPT/HCPCS: 96127 ==

== ENCOUNTER 2025-06-23 13:51 | Outpatient (AMB) | payer BC, SELFPAY ==
[2025-06-23 13:56] VITALS: BP 142/80; PULSE 84; O2SAT 97; BMI 37.5
--- NOTE | 2025-06-23 13:56 | A.OFFVIS_ITS ---
Vital Signs 06/23/25 13:56 Height 5 ft 4 in Weight 218 lb 6 oz BMI 37.5 BP 142/80 H Blood Pressure Location Lt brachial Position Sitting Pulse 84 Pulse Source Pulse Oximeter Pulse Oximetry (%) 97 Oxygen Delivery Method Room Air Intake Visit Reasons: Asthma Allergies No Known Allergies Allergy (Verified 06/23/25 13:59) HPI HPI Asthma: Details: Jazmín is a pleasant 59 year old female, former 10+ pack year smoker, quit 35+ years ago with underlying asthma, GERD and HTN. She was referred by her PCP for pulmonary evaluation. She reports diagnosis of asthma as a child however symptoms resolved up until recently. She reports the onset of wheezing at the end of February, which seemed to coincide with a change in her blood pressure medication from lisinopril/hydrochlorothiazide to a higher dose. The wheezing progressively worsened, particularly at night, interfering with her and her 's sleep. She was seen at urgent care and initially given an albuterol inhaler, which did not help her wheezing. Upon a return visit, she was prescribed prednisone, which provided relief; however, the wheezing returned after the course was completed. Her primary care provider, then prescribed prednisone again, started her on a Qvar inhaler, and switched her blood pressure medication to amlodipine and hydrochlorothiazide. The Qvar inhaler has been effective in controlling the wheezing, though she notes a slight recurrence of symptoms when she is nearing the time for her next dose. Since starting the Qvar, she has been experiencing daily headaches, which radiate from ear to ear and down the back of her neck. She does not typically get headaches. Associated symptoms include significant postnasal drip, for which she tried fluticasone spray without much benefit. She initially had a cough that resolved with prednisone. She denies any chest tightness, shortness of breath, fever, or feeling run down. Past medical history is notable for allergy-induced asthma as a child, which resolved for many years, and known allergies to tree pollens, mold, feathers, ragweed, and dust. The patient is a former smoker with an [id number] history, having quit 37 years ago, and reports significant secondhand smoke exposure throughout her life. Family history is positive for a father with esophageal cancer and a mother with emphysema. 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 A recent chest x-ray was unremarkable. She has never had a pulmonary function test. [facility] Medical History GERD (gastroesophageal reflux disease) Dyslipidemia Fatty liver Hypertension Surgical History History of colonoscopy History of laparoscopy History of section H/O: hysterectomy Family History Father Esophageal cancer Mother COPD (chronic obstructive pulmonary disease) Paternal Grandfather Diabetes Maternal Grandfather Substance abuse Maternal Grandmother Substance abuse Brother Substance abuse Other Mental problem Social History Housing: House Alcohol intake: never Patient Tobacco Use Status: Former Tobacco user e-Cigarette/Vaping Use: Never Used Second Hand Smoke Exposure: No service: No Current occupational status: employed 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 Current occupational exposures/hazards: No Cognitive needs: No Hearing needs: No Vision needs: Yes (Glasses) Review of Systems Const Denies chills, Denies excessive sweating, Denies fever(s), Denies headache(s) and Denies night sweats Eyes Denies dry eyes, Denies irritation and Denies itchy eyes ENT Reports Normal hearing present, Denies headache(s), Denies nasal congestion, Denies nasal discharge, Denies post nasal drip and Denies sore throat Card Denies chest pain, Denies chest pain at rest, Denies chest pain with activity, Denies claudication, Denies leg edema, Denies dyspnea, Denies dyspnea on exertion, Denies orthopnea and Denies paroxysmal nocturnal dyspnea Resp Denies chest congestion, Denies cough, Denies excessive phlegm production, Denies pain on inspiration, Denies pain with cough, Denies dyspnea, Denies dyspnea on exertion, Denies stridor and Denies wheezing Musc Denies myalgias Neuro Reports Normal hearing present and Denies headache(s) Endo Denies excessive sweating Lopez/Lymph Denies lymphadenopathy Aller/Immun Denies itchy eyes, Denies seasonal rhinorrhea and Denies wheezing Physical Exam Vital Signs: Last Vital Signs Pulse 84 06/23/25 13:56 BP 142/80 H 06/23/25 13:56 Pulse Ox 97 06/23/25 13:56 Oxygen Delivery Method Room Air 06/23/25 13:56 BMI result Body Mass Index 37.5 Const General: cooperative, healthy appearing, comfortable, no acute distress, well developed and alert Nutritional Appearance: obese Orientation/consciousness: patient oriented x3 Limitations: no limitations HEENT Head: Yes normal to inspection, Yes normocephalic and Yes atraumatic Ears: hearing grossly normal bilaterally and external ears normal Eyes General: appearance normal, both eyes and all related structures Eyelids: Yes eyelids normal Sclerae: sclerae normal EOM: EOMs intact bilaterally Neck Neck: Yes normal visual inspection and Yes no lymphadenopathy Lymphatic: no lymphadenopathy noted Chest Chest palpation & inspection: normal inspection of the chest Resp Effort & Inspection: normal respiratory effort, able to speak in complete sentences, no audible wheezes, no cough, no stridor, not tachypneic, no tripod positioning and no use of accessory muscles Auscultation: clear to auscultation bilaterally Cardio Jugular venous distension: no JVD Rate: regular rate Rhythm: regular rhythm Skin Other: warm, dry General skin exam: no rashes or lesions noted Neuro General: patient oriented x3 Cranial nerves: Yes Normal hearing present Cognition (Neuro): normal cognition Gait exam (Neuro): Normal gait present Extrem General: Yes normal to inspection, Yes capillary refill normal, Yes no clubbing, cyanosis or edema and Yes no pedal edema Psych Appearance: grossly normal and well kempt Speech and movement: Normal speech and movement present and Clear speech present Affect: normal affect Attitude: cooperative Thought process: Normal thought process present Thought content: Normal thought content present Insight: Good insight present (Psych) Judgement: Good judgement present (Psych) Results Reviewed Results Reviewed: [facility] [address] [place] [address] [place] [address] XRay Report Signed Patient: Jazmín Steiner MR#: [id number] : 1965 Acct:[id number] Age/Sex: 59 / F ADM Date: 04/08/25 Loc: HO.HMGCX Attending Dr: Zoe NARANJO Ordering Physician: Zoe Steward Date of Service: 04/08/25 Procedure(s): XR chest 2V Accession Number(s): [id number] cc: Zoe Steward; Rebecca Willis MD~ Reason for Exam: R05.9 - Cough, unspecified CLINICAL HISTORY: R05.9 - Cough, unspecified --- Additional Notes or Special Instructions: 3 weeks cough, wheezing all hinojosa, no fever 2 view chest x-ray Comparison: None provided Findings: No consolidation or effusion. Normal size heart. No acute fracture. IMPRESSION: 1. No acute findings. This document has been electronically signed by: Ligia Caceres MD on 04/08/2025 13:28:25 Dictated By: Ligia Caceres MD Signed By: <Electronically signed by Ligia Caceres MD in OV> 04/08/25 1328 DD/ 1328 TD/TT: 04/08/25 1328 Operations Manager/Coordinator: Assessment & Plan Assessment & Plan (1) Asthma: Code(s): J45.909 - Unspecified asthma, uncomplicated Category: Medical (2) Environmental allergies: Code(s): Z91.09 - Other allergy status, other than to drugs and biological substances Category: Medical Plan The patient's presentation with wheezing, a history of childhood asthma, and a positive response to inhaled corticosteroids is highly suggestive of asthma. Although her symptoms started after a lisinopril dose change, the positive response to prednisone makes an LEONCIO inhibitor-induced cough less likely. Her current low-dose Qvar is not providing complete symptom control, as evidenced by wheezing before doses. Plan is to discontinue Qvar and switch to Arnuity Ellipta, to assess if the headache resolves and assess for improved symptom control. The patient was educated on proper inhaler technique. The patient will also be advised to ensure adequate hydration and discuss with PCP if headache persists. Will order a pulmonary function test to assess severity of obstructive defect. The patient has a history of multiple environmental allergies and reports significant postnasal drip, which did not improve with fluticasone nasal spray. Plan is to order blood work for updated allergy testing. The patient will continue her current oral allergy medication. Initiation of a different nasal spray will be deferred until the next visit to first assess the effects of the new inhaler. All questions were answered and patient is in agreement of plan. Will follow up in 6-8 weeks or sooner if needed. Orders: Orders Complete Blood Count Auto Diff 06/23/25 Z91.09 - Other allergy status, other than to drugs and biological substances PFT pulmonary function test 06/23/25 J45.909 - Unspecified asthma, uncomplicated Resp Allergy Profile Region I 06/23/25 Z91.09 - Other allergy status, other than to drugs and biological substances Immunoglobulin E 06/23/25 Z91.09 - Other allergy status, other than to drugs and biological substances Medications: New fluticasone furoate 100 mcg/actuation (Arnuity Ellipta) 1 inh inhalation DAILY 30 ea 2RF Discontinued beclomethasone dipropionate 40 mcg/actuation Discontinued Reason: Patient Completed Course 1 inh inhalation BID 30 days 10.6 grams 0RF J45.909 - Unspecified asthma, uncomplicated Coding Level of Care Code New Pt Level 4 (25309) Diagnoses Asthma J45.909 Environmental allergies Z.
== END 2025-06-23 14:41 | disposition home or self-care (01) ==
LOC: HO.HPSW 13:52
PROVIDERS: PCP Internal Medicine; Referring Provider Internal Medicine; Visit Provider Nurse Practitioner Family
DX: J45.909 Unspecified asthma, uncomplicated (principal); Z91.09 Other allergy status, other than to drugs and biological substances
CPT/HCPCS: 99204

== ENCOUNTER 2025-06-23 13:51 | Outpatient (REF) | payer BC, SELFPAY ==
[2025-06-23 18:31] LABS: MANUAL DIFF FLAG NO
[2025-06-23 18:36] LABS: Hematocrit 40.4 % (37.0-47.0); Hemoglobin 13.4 g/dl (12.0-16.0); Imm Gran Abs Auto 0.05 X10*3/uL (0.00-0.03); Imm Gran Pct Auto 0.6 % (0.0-0.4); Lymphocytes Absolute Auto 2.4 X10*3/uL (1.2-4.9); Mean Corpuscular HGB Conc 33.2 g/dl (31.0-35.0); Mean Corpuscular Hemoglobin 29.6 pg (27.0-33.0); Mean Corpuscular Volume 89.2 fL (80.0-98.0); NRBC Abs Auto 0.000 X10*3/uL (0.0-0.012); NRBC Pct Auto 0.0 /100WBC (0.0-0.2); Platelet Count 298 X10*3/uL (160-400); Red Blood Count 4.53 X10*6/uL (4.20-5.50); White Blood Count 9.0 X10*3/uL (4.8-10.8)
[2025-06-27 20:23] LABS: Class Alternaria alternata 0/1; Class Aspergillus fumigatus 0; Class Bermuda Grass 0; Class Birch 0/1; Class Cat Dander 0; Class Cladosporium herbarum 0; Class Cockroach 0; Class Common Ragweed 2; Class Cottonwood 0/1; Class Derm. pterony 1; Class Dermatophagoides farinae 0/1; Class Dog Dander 0; Class Elm 0; Class Maple Box Elder 0; Class Mountain Cedar 0; Class Mouse Urine Protein 0; Class Mugwort 0/1; Class Oak 0/1; Class Penicillium crysogenum 0; Class Rough Pigweed 0; Class Sheep Sorrel 0; Class Sycamore 0; Class Timothy Grass 0/1; Class Walnut Tree 0; Class White Ash 0; Class White Mulberry 0; D002 - IgE D farinae 0.21 kU/L; E001 - IgE Cat Dander <0.10 kU/L; E005 - IgE Dog Dander <0.10 kU/L; G006 - IgE Timothy Grass 0.25 kU/L; I006-IgE Cockroach, German <0.10 kU/L; M002 - IgE Cladosporium herbar <0.10 kU/L; M003 - IgE Aspergillus fumigat <0.10 kU/L; M006 - IgE Alternaria alternat 0.18 kU/L; T001 IgE Maple/Box Elder <0.10 kU/L; T006 - IgE Cedar, Mountain <0.10 kU/L; T007 - IgE Oak, White 0.18 kU/L; T008 IgE Elm, American <0.10 kU/L; T010 - IgE Walnut <0.10 kU/L; T011 - IgE Maple Leaf Sycamore <0.10 kU/L; T014 - IgE Cottonwood 0.26 kU/L; T015 - IgE Ash, White <0.10 kU/L; T070 - IgE White Mulberry <0.10 kU/L; W001 - IgE Ragweed, Short 0.76 kU/L; W006 - IgE Mugwort 0.22 kU/L; W014 IgE Pigweed, Common <0.10 kU/L; W018 IgE Sheep Sorrel <0.10 kU/L
== END 2025-06-23 13:52 | disposition home or self-care (01) ==
LOC: HO.WFDLDS 13:51
PROVIDERS: PCP Internal Medicine; Referring Provider Internal Medicine; Visit Provider Nurse Practitioner Family
DX: J45.909 Unspecified asthma, uncomplicated (principal); Z91.09 Other allergy status, other than to drugs and biological substances; Z87.891 Personal history of nicotine dependence; Z79.51 Long term (current) use of inhaled steroids
CPT/HCPCS: 36415; 82785; 85025; 86003